=== PATIENT | male | born 1935 | race Caucasian/White ===

== ENCOUNTER 2018-11-28 00:14 | Inpatient (IN) | payer MEDICARE, BC ==
[2018-11-28] MEDS ORDERED: Acetaminophen 325 MG Tab PO ONE (00:29)
[2018-11-28] MEDS ORDERED: Sodium Chloride 0.9% 1,000 ML IV ONE (00:32)
[2018-11-28 00:56] LABS: ANION GAP 13.8; CHLORIDE,CL 100 mmol/L (101-111); SODIUM,NA 133 mmol/L (135-145)
[2018-11-28] MEDS ORDERED: Iopamidol 612 MG/ML 75 ML Bottle IVPUSH ONE (01:53)
[2018-11-28] MEDS ORDERED: Piperacillin/Tazobactam 3.375 GM in Sodium Chloride 0.9% 100 ML IV ONE (02:04)
--- NOTE | 2018-11-28 02:09 | EDM.PDOC ---
ED HPI GENERAL MEDICAL PROBLEM - General Chief Complaint: Possible Sepsis Stated Complaint: AMBULANCE, WEAK Time Seen by Provider: 11/28/18 00:20 Source of Information: Reports: Patient, EMS, Family, RN History Limitations: Reports: Altered Mental Status - History of Present Illness INITIAL COMMENTS - FREE TEXT/NARRATIVE: ED via [facility] with weakness, fever, fell last night, hurt shoulder and bumped head ,no reported loss of consciousness. Hx CVA with left side deficit. Patient admits problems with memory. Hx limited. Family unsure of medications. Appetite decreased still taking fluids. Runny nose past 3 days occasional non productive cough. No prior records on patient. Stated just moved to area 2 weeks prior. Left Shoulder Pain Score (Numeric/FACES): 8 - Related Data Allergies Allergy/AdvReac Type Severity Reaction Status Date / Time No Known Allergies Allergy Verified 11/28/18 03:07 Home Meds: Home Meds Clopidogrel [Plavix] 75 mg PO DAILY 11/28/18 [History] Ferrous Sulfate 325 mg PO DAILY 11/28/18 [History] Multivit-Min/FA/Lycopene/Lut [Centrum Silver Ultra Men's] 1 tab PO DAILY [History] Nystatin 1 applic TOP TID 11/28/18 [History] Pantoprazole Sodium [Protonix] 20 mg PO DAILY 11/28/18 [History] Simvastatin 10 mg PO DAILY 11/28/18 [History] Solifenacin Succinate [Vesicare] 10 mg PO DAILY 11/28/18 [History] Past Medical History HEENT History: Reports: Hard of Hearing Cardiovascular History: Reports: High Cholesterol Gastrointestinal History: Reports: Other (See Below) Other Gastrointestinal History: hernia Genitourinary History: Reports: UTI, Recurrent, Other (See Below) Other Genitourinary History: urosepsis Aug 2018 Neurological History: Reports: Other (See Below) Other Neuro History: hx of "multiple strokes" - Past Surgical History GI Surgical History: Reports: Colonoscopy, EGD Social & Family History - Tobacco Use Smoking Status *Q: Former Smoker Used Tobacco, but Quit: Yes Month/Year Tobacco Last Used: 1994 - Caffeine Use Caffeine Use: Reports: Coffee - Recreational Drug Use Recreational Drug Use: No ED ROS GENERAL - Review of Systems Review Of Systems: See Below Constitutional: Reports: Fever, Weakness, Decreased Appetite HEENT: Reports: Rhinitis Respiratory: Reports: Cough (non productive) Cardiovascular: Reports: No Symptoms GI/Abdominal: Reports: Decreased Appetite : Reports: Incontinence Musculoskeletal: Reports: Shoulder Pain (left) Skin: Reports: No Symptoms Neurological: Reports: Pre-Existing Deficit ED EXAM, GENERAL - Physical Exam Exam: See Below Exam Limited By: No Limitations General Appearance: Alert, No Apparent Distress Eye Exam: Bilateral Eye: EOMI Ears: Normal External Exam, Hearing Loss Nose: Normal Inspection. No: Nasal Drainage Throat/Mouth: Normal Inspection Head: Normocephalic (light abrasion/bruise left upper forehead, nontender) Neck: Normal Inspection, Non-Tender, Full Range of Motion Respiratory/Chest: No Respiratory Distress, Lungs Clear Cardiovascular: Normal Peripheral Pulses, Regular Rate, Rhythm GI/Abdominal: Normal Bowel Sounds, Soft, Tender (mild LLQ) Back Exam: Normal Inspection Extremities: No: Normal Range of Motion (contracture left upper extremity), No Pedal Edema (1+) Neurological: Alert, Memory Loss Recent Events Psychiatric: Normal Affect, Normal Mood Skin Exam: Warm, Dry, Intact, Wound/Incision (abrasion left shoulder) Course - Vital Signs Last Recorded V/S: Last Vital Signs Temp 99.5 F 11/28/18 02:34 Pulse 75 11/28/18 02:34 Resp 24 H 11/28/18 02:34 BP 101/50 L 11/28/18 02:34 Pulse Ox 97 11/28/18 02:34 - Orders/Labs/Meds Orders: Active Orders 24 hr Category Date Time Status CULTURE BLOOD [BC] Stat Lab 11/28/18 00:24 Received CULTURE BLOOD [BC] Stat Lab 11/28/18 00:30 Results UA RFX CARLEE AND CULT IF INDIC [URIN] Urgent Lab 11/28/18 00:37 Ordered Clopidogrel [Plavix] Med 11/28/18 09:00 Active 75 mg PO DAILY Ferrous Sulfate Med 11/28/18 09:00 Active 325 mg PO DAILY Pantoprazole [ProTONIX] Med 11/28/18 06:00 Active 40 mg PO ACBREAKFAST Simvastatin [Zocor] Med 11/28/18 09:00 Active 10 mg PO DAILY Sodium Chloride 0.9% [Normal Saline] 1,000 ml Med 11/28/18 00:32 Active IV .BOLUS Solifenacin Succinate [Vesicare] Med 11/28/18 09:00 Pending 10 mg PO DAILY Blood Culture x2 Reflex Set [OM.PC] Stat Oth 11/28/18 00:32 Ordered Medication Orders Acetaminophen (Tylenol) 650 mg PO Q4H PRN PRN Reason: Pain (Mild 1-3)/fever Clopidogrel Bisulfate (Plavix) 75 mg PO DAILY [facility] Docusate Sodium (Colace) 100 mg PO BID PRN PRN Reason: Constipation Ferrous Sulfate (Ferrous Sulfate) 325 mg PO DAILY [facility] Heparin Sodium (Porcine) (Heparin Sodium) 5,000 units SUBCUT Q8HR [facility] Sodium Chloride (Normal Saline) 1,000 mls @ 100 mls/hr IV .BOLUS ONE Stop: 11/28/18 10:31 Last Infusion: 11/28/18 01:53 Dose: 999 mls/hr Admin: 11/28/18 00:54 Dose: 100 mls/hr Piperacillin Sod/Tazobactam (Sod 3.375 gm/ Sodium Chloride) 100 mls @ 200 mls/ hr IV Q6H [facility] Non-Formulary Medication (Solifenacin Succinate [Vesicare]) 10 mg PO DAILY [facility] Ondansetron HCl (Zofran Odt) 4 mg PO Q4H PRN PRN Reason: nausea, able to take PO Pantoprazole Sodium (Protonix) 40 mg PO ACBREAKFAST [facility] Simvastatin (Zocor) 10 mg PO DAILY [facility] Sodium Chloride (Saline Flush) 10 ml FLUSH ASDIRECTED PRN PRN Reason: Keep Vein Open Zolpidem Tartrate (Ambien) 5 mg PO BEDTIME PRN PRN Reason: Sleep Labs: Laboratory Tests 11/28/18 11/28/18 11/28/18 Range/Units 00:24 00:24 00:24 WBC 4.0 L (5.0-10.0) 10^3/uL RBC 4.32 L (4.6-6.2) 10^6/uL Hgb 11.8 L (14.0-18.0) g/dL Hct 36.3 L (40.0-54.0) % MCV 84.0 (80-100) fL MCH 27.3 (27.0-34.0) pg MCHC 32.5 L (33.0-35.0) g/dL Plt Count 134 L (150-450) 10^3/uL Neut % (Auto) 76.3 H (42.2-75.2) % Lymph % (Auto) 12.9 L (20.5-50.1) % Lamar % (Auto) 10.4 H (2-8) % Eos % (Auto) 0.2 L (1.0-3.0) % Baso % (Auto) 0.2 (0.0-1.0) % Sodium 133 L (135-145) mmol/L Potassium 3.8 (3.6-5.0) mmol/L Chloride 100 L (101-111) mmol/L Carbon Dioxide 23.0 (21.0-31.0) mmol/L Anion Gap 13.8 BUN 9 (7-18) mg/dL Creatinine 1.1 (0.6-1.3) mg/dL Est Cr Clr Drug Dosing TNP Estimated GFR (MDRD) > 60 BUN/Creatinine Ratio 8.18 Glucose 133 H (74-105) mg/dL Lactic Acid 1.1 (0.5-2.2) mmol/L Calcium 8.5 (8.4-10.2) mg/dl Total Bilirubin 2.6 H (0.2-1.0) mg/dL AST 31 (10-42) IU/L ALT 21 (10-60) IU/L Alkaline Phosphatase 85 (42-121) IU/L Troponin I (0.00-0.02) ng/ml B-Natriuretic Peptide (0-100) pg/ml Total Protein 6.2 L (6.7-8.2) g/dl Albumin 3.5 (3.2-5.5) g/dl Globulin 2.7 Albumin/Globulin Ratio 1.30 Amylase 60 (28-100) U/L Lipase 25 (22-51) U/L 11/28/18 Range/Units 00:24 WBC (5.0-10.0) 10^3/uL RBC (4.6-6.2) 10^6/uL Hgb (14.0-18.0) g/dL Hct (40.0-54.0) % MCV (80-100) fL MCH (27.0-34.0) pg MCHC (33.0-35.0) g/dL Plt Count (150-450) 10^3/uL Neut % (Auto) (42.2-75.2) % Lymph % (Auto) (20.5-50.1) % Lamar % (Auto) (2-8) % Eos % (Auto) (1.0-3.0) % Baso % (Auto) (0.0-1.0) % Sodium (135-145) mmol/L Potassium (3.6-5.0) mmol/L Chloride (101-111) mmol/L Carbon Dioxide (21.0-31.0) mmol/L Anion Gap BUN (7-18) mg/dL Creatinine (0.6-1.3) mg/dL Est Cr Clr Drug Dosing Estimated GFR (MDRD) BUN/Creatinine Ratio Glucose (74-105) mg/dL Lactic Acid (0.5-2.2) mmol/L Calcium (8.4-10.2) mg/dl Total Bilirubin (0.2-1.0) mg/dL AST (10-42) IU/L ALT (10-60) IU/L Alkaline Phosphatase (42-121) IU/L Troponin I 0.03 H* (0.00-0.02) ng/ml B-Natriuretic Peptide 163 H (0-100) pg/ml Total Protein (6.7-8.2) g/dl Albumin (3.2-5.5) g/dl Globulin Albumin/Globulin Ratio Amylase (28-100) U/L Lipase (22-51) U/L Meds: Medications Generic Name Dose Route Start Last Admin Trade Name Freq PRN Reason Stop Dose Admin Acetaminophen 650 mg 11/28/18 02:34 Tylenol PO Q4H PRN Pain (Mild 1-3)/fever Clopidogrel Bisulfate 75 mg 11/28/18 09:00 Plavix PO DAILY [facility] Docusate Sodium 100 mg 11/28/18 02:34 Colace PO BID PRN Constipation Ferrous Sulfate 325 mg 11/28/18 09:00 Ferrous Sulfate PO DAILY [facility] Heparin Sodium (Porcine) 5,000 units 11/28/18 06:00 Heparin Sodium SUBCUT Q8HR [facility] Sodium Chloride 1,000 mls @ 100 mls/hr 11/28/18 00:32 11/28/18 01:53 Normal Saline IV 11/28/18 10:31 999 mls/hr .BOLUS ONE Infusion Piperacillin Sod/Tazobactam 100 mls @ 200 mls/hr 11/28/18 08:00 Sod 3.375 gm/ Sodium Chloride IV Q6H [facility] Non-Formulary Medication 10 mg 11/28/18 09:00 Solifenacin Succinate [Vesicare] PO DAILY [facility] Ondansetron HCl 4 mg 11/28/18 02:34 Zofran Odt PO Q4H PRN nausea, able to take PO Pantoprazole Sodium 40 mg 11/28/18 06:00 Protonix PO ACBREAKFAST [facility] Simvastatin 10 mg 11/28/18 09:00 Zocor PO DAILY [facility] Sodium Chloride 10 ml 11/28/18 02:34 Saline Flush FLUSH ASDIRECTED PRN Keep Vein Open Zolpidem Tartrate 5 mg 11/28/18 02:34 Ambien PO BEDTIME PRN Sleep Discontinued Medications Generic Name Dose Route Start Last Admin Trade Name Freq PRN Reason Stop Dose Admin Acetaminophen 650 mg 11/28/18 00:29 11/28/18 00:48 Tylenol PO 11/28/18 00:30 650 mg NOW ONE Administration Piperacillin Sod/Tazobactam 100 mls @ 200 mls/hr 11/28/18 02:04 11/28/18 03: 04 Sod 3.375 gm/ Sodium Chloride IV 11/28/18 02:33 200 mls/hr ONETIME ONE Administration Piperacillin Sod/Tazobactam 100 mls @ 200 mls/hr 11/28/18 02:45 Sod 3.375 gm/ Sodium Chloride IV Q6H [facility] Iopamidol 75 ml 11/28/18 01:53 11/28/18 02:00 [id number] (61%) IVPUSH 11/28/18 01:54 75 ml ONETIME ONE Administration - Radiology Interpretation Free Text/Narrative:: [facility] Final Radiology Report Call: [phone] assistance Online chat: [email or web address] Name: GABRIELA CHAIDEZ Age: 82Years M Date: 11/28/2018 SSN: -- : 1935 Study: CT ABDOMEN/PELVIS W Requesting Physician: RICHARD CRUZ Images: [id number] Addl Studies: Provided Clinical History: Contrast: With Contrast Medium: [id number] Contrast Amount: 75 mL Contrast Method: left hand Page 1 of 2 EXAM: CT Abdomen and Pelvis With Contrast EXAM DATE/TIME: 11/28/2018 2:16 AM CLINICAL HISTORY: 82 years old, male; Signs and symptoms; Other: Llq pain, fever TECHNIQUE: Imaging protocol: Axial computed tomography images of the abdomen and pelvis with intravenous contrast. Coronal and sagittal reformatted images were created and reviewed. Radiation optimization: All CT scans at this facility use at least one of these dose optimization techniques: automated exposure control; mA and/or kV adjustment per patient size (includes targeted exams where dose is matched to clinical indication); or iterative reconstruction. Contrast material: [id number]; Contrast volume: 75 ml; Contrast route: LEFT HAND; COMPARISON: No relevant prior studies available. FINDINGS: Lungs: Minimal dependent atelectasis. ABDOMEN: Liver: No suspicious lesions. Gallbladder and bile ducts: No acute or concerning findings. Pancreas: Unremarkable. No ductal dilation. Spleen: No suspicious lesions. Adrenals: Unremarkalbe. No suspicious mass. Kidneys and ureters: Unremarkable. No hydro. No suspicious lesions. GABRIELA CHAIDEZ | Final Radiology Report CONFIDENTIALITY STATEMENT This report is intended only for use by the referring physician, and only in accordance with law. If you received this in error, call [phone]. Page 2 of 2 Stomach and bowel: Large right inguinal hernia containing small bowel loops with no evidence of obstruction or strangulation. Colonic diverticulosis. Appendix: No evidence of appendicitis. PELVIS: Bladder: Unremarkable as visualized. Reproductive: Unremarkable as visualized. Subperitoneal space: Infiltrative soft tissue in the presacral region at S1 and S2 levels with some cortical destruction then bony remodeling. ABDOMEN and PELVIS: Intraperitoneal space: No free air. No significant fluid collection. Bones/joints: No acute fracture. No dislocation. Soft tissues: Unremarkable. Vasculature: Abdominal aorta has a maximal AP diameter of 6.2 cm. Right common iliac artery has a diameter of 3.5 cm. Lymph nodes: Unremarkable. IMPRESSION: 6.2 cm abdominal aortic aneurysm. 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 Presacral soft tissue involving the bone at S1 and S2 levels with loss of cortex and bony remodeling. This is nonspecific. Given the bony remodeling possibly a chronic inflammatory process but neoplasm is on the differential diagnosis. Large right inguinal hernia. Thank you for allowing us to participate in the care of your patient. [facility] [place] [facility] Final Radiology Report Call: [phone] assistance Online chat: [email or web address] Name: GABRIELA CHAIDEZ Age: 82Years M Date: 11/28/2018 SSN: -- : 1935 Study: CT HEAD WO Requesting Physician: RICHARD CRUZ Images: [id number] Addl Studies: Provided Clinical History: Contrast: Without Contrast Medium: Contrast Amount: Contrast Method: Page 1 of 2 EXAM: CT Head Without Contrast EXAM DATE/TIME: 11/28/2018 12:34 AM CLINICAL HISTORY: 82 years old, male; Signs and symptoms; Other: Fell hit head yesterday, no loss consciousness, fever TECHNIQUE: Imaging protocol: Axial computed tomography images of the head/brain without contrast. Coronal and sagittal reformatted images were created and reviewed. Radiation optimization: All CT scans at this facility use at least one of these dose optimization techniques: automated exposure control; mA and/or kV adjustment per patient size (includes targeted exams where dose is matched to clinical indication); or iterative reconstruction. COMPARISON: No relevant prior studies available. FINDINGS: Brain: Extensive chronic periventricular deep white matter small vessel ischemic change. Right occipital lobe has some encephalomalacia. Multiple old lacunar infarcts. No obvious acute infarct or hemorrhage. Ventricles: No ventriculomegaly. Bones/joints: Unremarkable. Sinuses: No sinus fluid. Mastoid air cells: Left mastoid effusion. Soft tissues: Unremarkable. IMPRESSION: GABRIELA CHAIDEZ | Final Radiology Report CONFIDENTIALITY STATEMENT This report is intended only for use by the referring physician, and only in accordance with law. If you received this in error, call [phone]. Page 2 of 2 No acute intracranial findings. Thank you for allowing us to participate in the care of your patient. Dictated and Authenticated by: Rachid Nelson MD 11/28/2018 1:25 AM Central Time ([place] & [place]) Final Radiology Report Call: [phone] assistance Online chat: [email or web address] Name: GABRIELA CHAIDEZ Age: 82Years M Date: 11/28/2018 MRN: [id number] SSN: -- : 1935 Study: XR CHEST 1 VIEW FRONTAL Requesting Physician: RICHARD CRUZ Images: 1 Addl Studies: Provided Clinical History: Contrast: Contrast Medium: Contrast Amount: Contrast Method: CONFIDENTIALITY STATEMENT This report is intended only for use by the referring physician, and only in accordance with law. If you received this in error, call [phone]. Page 1 of 1 EXAM: XR Chest, 1 View EXAM DATE/TIME: 11/28/2018 12:38 AM CLINICAL HISTORY: 82 years old, male; Signs and symptoms; Fever and other: Fall yesterday, weakness TECHNIQUE: Imaging protocol: XR of the chest, 1 view. COMPARISON: No relevant prior studies available. FINDINGS: Lungs: Unremarkable. No consolidation. Pleural space: Unremarkable. No pleural effusion. No pneumothorax. Heart/Mediastinum: Unremarkable. No cardiomegaly. Bones/joints: Unremarkable. IMPRESSION: No acute findings. Thank you for allowing us to participate in the care of your patient. Dictated and Authenticated by: Luis Enrique Savage MD 11/28/2018 1:24 AM Central Time ( & [place]) - Re-Assessments/Exams Free Text/Narrative Re-Assessment/Exam: 11/28/18 02:07 Fever improved, more alert talkative. Most recent H&P obtained from [facility] [address] [facility] with most recent admission there for urosepsis. Departure - Departure Time of Disposition: 02:20 Disposition: Refer to Observation Condition: Good Clinical Impression: History of CVA with residual deficit, Weakness Fever Qualifiers: Fever type: unspecified Qualified Code(s): R50.9 - Fever, unspecified - Discharge Information *PRESCRIPTION DRUG MONITORING PROGRAM REVIEWED*: No *COPY OF PRESCRIPTION DRUG MONITORING REPORT IN PATIENT MORELIA: No - My Orders Last 24 Hours: My Active Orders 11/28/18 00:24 CULTURE BLOOD [BC] Stat 11/28/18 00:30 CULTURE BLOOD [BC] Stat 11/28/18 00:32 Sodium Chloride 0.9% [Normal Saline] 1,000 ml IV .BOLUS Blood Culture x2 Reflex Set [OM.PC] Stat 11/28/18 00:37 UA RFX CARLEE AND CULT IF INDIC [URIN] Urgent - Assessment/Plan Last 24 Hours: My Active Orders 11/28/18 00:24 CULTURE BLOOD [BC] Stat 11/28/18 00:30 CULTURE BLOOD [BC] Stat 11/28/18 00:32 Sodium Chloride 0.9% [Normal Saline] 1,000 ml IV .BOLUS Blood Culture x2 Reflex Set [OM.PC] Stat 11/28/18 00:37 UA RFX CARLEE AND CULT IF INDIC [URIN] Urgent
[2018-11-28] MEDS ORDERED: Ondansetron 4 MG Tab.DIS PO PRN (02:34)
[2018-11-28] MEDS ORDERED: Zolpidem 5 MG Tab PO PRN (02:34)
[2018-11-28] MEDS ORDERED: Docusate Sodium 100 MG Cap PO PRN (02:34)
--- NOTE | 2018-11-28 02:44 | PCM.HP ---
H&P History of Present Illness - General Date of Service: 11/28/18 Admit Problem/Dx: Admission Diagnosis/Problem Admission Diagnosis/Problem Fever Source of Information: Patient, Provider (er) History Limitations: Reports: Other (Limited knowledge of medical condition) - History of Present Illness Initial Comments - Free Text/Narative: 82-year-old with a history of stroke with left upper extremity deficit. History of right inguinal hernia The patient has been weak. Fell a few days ago. Has been complaining of moderate left shoulder pain. Brought into the emergency room with generalized lower extremity weakness, fever up to 104.6 Stuffy nose in the history, occasional cough. Denies chest pain. Denies urinary burning. Left Shoulder Pain Score (Numeric/FACES): 8 - Related Data Allergies/Adverse Reactions: Allergies Allergy/AdvReac Type Severity Reaction Status Date / Time No Known Allergies Allergy Verified 11/28/18 02:04 Home Medications: Home Meds Clopidogrel [Plavix] 75 mg PO DAILY 11/28/18 [History] Ferrous Sulfate 325 mg PO DAILY 11/28/18 [History] Multivit-Min/FA/Lycopene/Lut [Centrum Silver Ultra Men's] 1 tab PO DAILY [History] Nystatin 1 applic TOP TID 11/28/18 [History] Pantoprazole Sodium [Protonix] 20 mg PO DAILY 11/28/18 [History] Simvastatin 10 mg PO DAILY 11/28/18 [History] Solifenacin Succinate [Vesicare] 10 mg PO DAILY 11/28/18 [History] Past Medical History HEENT History: Reports: Hard of Hearing Cardiovascular History: Reports: High Cholesterol Gastrointestinal History: Reports: Other (See Below) Other Gastrointestinal History: hernia Genitourinary History: Reports: UTI, Recurrent, Other (See Below) Other Genitourinary History: urosepsis Aug 2018 Neurological History: Reports: Other (See Below) Other Neuro History: hx of "multiple strokes" - Past Surgical History GI Surgical History: Reports: Colonoscopy, EGD Social & Family History - Tobacco Use Smoking Status *Q: Former Smoker Used Tobacco, but Quit: Yes Month/Year Tobacco Last Used: 1994 - Caffeine Use Caffeine Use: Reports: Coffee - Recreational Drug Use Recreational Drug Use: No H&P Review of Systems - Review of Systems: Review Of Systems: See Below General: Reports: Fever, Weakness Pulmonary: Denies: Shortness of Breath, Wheezing Cardiovascular: Denies: Chest Pain, Edema Gastrointestinal: Reports: Other (Chronic inguinal hernia). Denies: Abdominal Pain Genitourinary: Denies: Dysuria Psychiatric: Reports: Confusion Exam - Exam Exam: See Below - Vital Signs Vital Signs: Last Vital Signs Temp 38.1 C 11/28/18 01:27 Pulse 81 11/28/18 01:27 Resp 16 11/28/18 01:27 BP 103/47 L 11/28/18 01:27 Pulse Ox 97 11/28/18 01:27 Weight: 83.733 kg - Exam General: Alert, Oriented (Place and person but limited insight into medical condition) Neck: Supple Lungs: Normal Respiratory Effort, Decreased Breath Sounds Cardiovascular: Regular Rate, Regular Rhythm GI/Abdominal Exam: Normal Bowel Sounds, Soft, Non-Tender, Other (Right inguinal hernia) (Male) Exam: Hernia Extremities: No Pedal Edema Skin: Warm, Dry Neurological: Focal Deficit (Left upper extremity hand contracture, 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) Neuro Extensive - Mental Status: Alert, Oriented x3 - Patient Data Lab Results Last 24 hrs: Laboratory Results - last 24 hr 11/28/18 11/28/18 11/28/18 Range/Units 00:24 00:24 00:24 WBC 4.0 L (5.0-10.0) 10^3/uL RBC 4.32 L (4.6-6.2) 10^6/uL Hgb 11.8 L (14.0-18.0) g/dL Hct 36.3 L (40.0-54.0) % MCV 84.0 (80-100) fL MCH 27.3 (27.0-34.0) pg MCHC 32.5 L (33.0-35.0) g/dL Plt Count 134 L (150-450) 10^3/uL Neut % (Auto) 76.3 H (42.2-75.2) % Lymph % (Auto) 12.9 L (20.5-50.1) % [place] % (Auto) 10.4 H (2-8) % Eos % (Auto) 0.2 L (1.0-3.0) % Baso % (Auto) 0.2 (0.0-1.0) % Sodium 133 L (135-145) mmol/L Potassium 3.8 (3.6-5.0) mmol/L Chloride 100 L (101-111) mmol/L Carbon Dioxide 23.0 (21.0-31.0) mmol/L Anion Gap 13.8 BUN 9 (7-18) mg/dL Creatinine 1.1 (0.6-1.3) mg/dL Est Cr Clr Drug Dosing TNP Estimated GFR (MDRD) > 60 BUN/Creatinine Ratio 8.18 Glucose 133 H (74-105) mg/dL Lactic Acid 1.1 (0.5-2.2) mmol/L Calcium 8.5 (8.4-10.2) mg/dl Total Bilirubin 2.6 H (0.2-1.0) mg/dL AST 31 (10-42) IU/L ALT 21 (10-60) IU/L Alkaline Phosphatase 85 (42-121) IU/L Troponin I (0.00-0.02) ng/ml B-Natriuretic Peptide (0-100) pg/ml Total Protein 6.2 L (6.7-8.2) g/dl Albumin 3.5 (3.2-5.5) g/dl Globulin 2.7 Albumin/Globulin Ratio 1.30 Amylase 60 (28-100) U/L Lipase 25 (22-51) U/L 11/28/18 Range/Units 00:24 WBC (5.0-10.0) 10^3/uL RBC (4.6-6.2) 10^6/uL Hgb (14.0-18.0) g/dL Hct (40.0-54.0) % MCV (80-100) fL MCH (27.0-34.0) pg MCHC (33.0-35.0) g/dL Plt Count (150-450) 10^3/uL Neut % (Auto) (42.2-75.2) % Lymph % (Auto) (20.5-50.1) % [place] % (Auto) (2-8) % Eos % (Auto) (1.0-3.0) % Baso % (Auto) (0.0-1.0) % Sodium (135-145) mmol/L Potassium (3.6-5.0) mmol/L Chloride (101-111) mmol/L Carbon Dioxide (21.0-31.0) mmol/L Anion Gap BUN (7-18) mg/dL Creatinine (0.6-1.3) mg/dL Est Cr Clr Drug Dosing Estimated GFR (MDRD) BUN/Creatinine Ratio Glucose (74-105) mg/dL Lactic Acid (0.5-2.2) mmol/L Calcium (8.4-10.2) mg/dl Total Bilirubin (0.2-1.0) mg/dL AST (10-42) IU/L ALT (10-60) IU/L Alkaline Phosphatase (42-121) IU/L Troponin I 0.03 H* (0.00-0.02) ng/ml B-Natriuretic Peptide 163 H (0-100) pg/ml Total Protein (6.7-8.2) g/dl Albumin (3.2-5.5) g/dl Globulin Albumin/Globulin Ratio Amylase (28-100) U/L Lipase (22-51) U/L Result Diagrams: 11/28/18 00:24 11/28/18 00:24 Jose Results Last 24 hrs: Microbiology 11/28/18 00:30 Anaerobic Blood Culture - Final Blood - Venous - Lab Draw Problem List Initiated/Reviewed/Updated: Yes Orders Last 24hrs: Active Orders 24 hr Category Date Time Status Patient Status [ADT] Routine ADT 11/28/18 02:34 Ordered Antiembolic Devices [RC] PER UNIT ROUTINE Care 11/28/18 02:36 Ordered EKG Documentation Completion [RC] URGENT Care 11/28/18 00:32 Active Oxygen Therapy [RC] PRN Care 11/28/18 02:34 Ordered Peripheral IV Care [RC] . DIRECTED Care 11/28/18 02:36 Ordered Up With Assistance [RC] ASDIRECTED Care 11/28/18 02:34 Ordered VTE/DVT Education [RC] PER UNIT ROUTINE Care 11/28/18 02:34 Ordered Vital Signs [RC] Q4H Care 11/28/18 02:34 Ordered Regular Diet [DIET] Diet 11/28/18 Breakfast Ordered BASIC METABOLIC PANEL,BMP [CHEM] AM Lab 11/28/18 05:11 Ordered CBC WITH AUTO DIFF [HEME] AM Lab 11/28/18 05:11 Ordered CULTURE BLOOD [BC] Stat Lab 11/28/18 00:24 Received CULTURE BLOOD [BC] Stat Lab 11/28/18 00:30 Results UA RFX JOSE AND CULT IF INDIC [URIN] Urgent Lab 11/28/18 00:37 Ordered Acetaminophen [Tylenol] Med 11/28/18 02:34 Ordered 650 mg PO Q4H PRN Clopidogrel [Plavix] Med 11/28/18 09:00 Ordered 75 mg PO DAILY Docusate Sodium [Colace] Med 11/28/18 02:34 Ordered 100 mg PO BID PRN Ferrous Sulfate Med 11/28/18 09:00 Ordered 325 mg PO DAILY Heparin Sodium Med 11/28/18 06:00 Ordered 5,000 units SUBCUT Q8HR Ondansetron [Zofran ODT] Med 11/28/18 02:34 Ordered 4 mg PO Q4H PRN Pantoprazole [ProTONIX] Med 11/28/18 06:00 Ordered 40 mg PO ACBREAKFAST Piperacillin/Tazobactam [Zosyn] 3.375 gm Med 11/28/18 02:45 Ordered Sodium Chloride 0.9% [Normal Saline] 100 ml IV Q6H Simvastatin [Zocor] Med 11/28/18 09:00 Ordered 10 mg PO DAILY Sodium Chloride 0.9% [Normal Saline] 1,000 ml Med 11/28/18 00:32 Active IV .BOLUS Sodium Chloride 0.9% [Saline Flush] Med 11/28/18 02:34 Ordered 10 ml FLUSH ASDIRECTED PRN Solifenacin Succinate [Vesicare] Med 11/28/18 09:00 Ordered 10 mg PO DAILY Zolpidem [Ambien] Med 11/28/18 02:34 Ordered 5 mg PO BEDTIME PRN Antiembolic Hose [OM.PC] Per Unit Routine Oth 11/28/18 02:35 Ordered Blood Culture x2 Reflex Set [OM.PC] Stat Oth 11/28/18 00:32 Ordered Peripheral IV Insertion Adult [OM.PC] Routine Oth 11/28/18 02:34 Ordered Saline Lock Insert [OM.PC] Routine Oth 11/28/18 02:34 Ordered Resuscitation Status Routine Resus Stat 11/28/18 02:34 Ordered Medication Orders Acetaminophen (Tylenol) 650 mg PO Q4H PRN PRN Reason: Pain (Mild 1-3)/fever Clopidogrel Bisulfate (Plavix) 75 mg PO DAILY [facility] Docusate Sodium (Colace) 100 mg PO BID PRN PRN Reason: Constipation Ferrous Sulfate (Ferrous Sulfate) 325 mg PO DAILY [facility] Heparin Sodium (Porcine) (Heparin Sodium) 5,000 units SUBCUT Q8HR [facility] Sodium Chloride (Normal Saline) 1,000 mls @ 100 mls/hr IV .BOLUS ONE Stop: 11/28/18 10:31 Last Infusion: 11/28/18 01:53 Dose: 999 mls/hr Admin: 11/28/18 00:54 Dose: 100 mls/hr Piperacillin Sod/Tazobactam (Sod 3.375 gm/ Sodium Chloride) 100 mls @ 200 mls/ hr IV Q6H [facility] Non-Formulary Medication (Solifenacin Succinate [Vesicare]) 10 mg PO DAILY [facility] Ondansetron HCl (Zofran Odt) 4 mg PO Q4H PRN PRN Reason: nausea, able to take PO Pantoprazole Sodium (Protonix) 40 mg PO ACBREAKFAST [facility] Simvastatin (Zocor) 10 mg PO DAILY [facility] Sodium Chloride (Saline Flush) 10 ml FLUSH ASDIRECTED PRN PRN Reason: Keep Vein Open Zolpidem Tartrate (Ambien) 5 mg PO BEDTIME PRN PRN Reason: Sleep Assessment/Plan Comment:: 82-year-old with a history of stroke presented with lower extremity weakness, fever Fever No significant leukocytosis Obtain blood culture Obtain urinalysis and culture Obtain CT abdomen Start empirical treatment with Zosyn History of stroke continue treatment with Plavix We'll get physical and occupational therapy Dyslipidemia Treat with statin DVT prophylaxis with subcutaneous heparin
[2018-11-28] MEDS ORDERED: Piperacillin/Tazobactam 3.375 GM in Sodium Chloride 0.9% 100 ML IV SCH (02:45)
[2018-11-28] MEDS: Pantoprazole 40 MG Tab.CR PO SCH (06:02)
[2018-11-28] MEDS: Heparin Sodium 5,000 Units/ML Vial SUBCUT SCH ×3 (06:02→21:41)
[2018-11-28 07:06] LABS: ANION GAP 14.1; CHLORIDE,CL 103 mmol/L (101-111); SODIUM,NA 137 mmol/L (135-145)
[2018-11-28] MEDS: Piperacillin/Tazobactam 3.375 GM in Sodium Chloride 0.9% 100 ML IV SCH ×3 (08:01→20:48)
[2018-11-28] MEDS: Sodium Chloride 0.9% 10 ML Syringe FLUSH PRN ×3 (08:01→21:34)
[2018-11-28] MEDS: Simvastatin 10 MG Tab PO SCH (08:05)
[2018-11-28] MEDS: Ferrous Sulfate 325 MG Tab PO SCH (08:05)
[2018-11-28] MEDS: Clopidogrel 75 MG Tab PO SCH (08:05)
[2018-11-28] MEDS ORDERED: Non-Formulary Medication 1 Each (Solifenacin Succinate [Vesicare] 10 MG) PO SCH (09:00)
--- NOTE | 2018-11-28 12:17 | PCM.PN ---
- General Info Date of Service: 11/28/18 Subjective Update: feeling better no complaints - Review of Systems General: Reports: Fever (decreased) Pulmonary: Denies: Shortness of Breath Cardiovascular: Denies: Chest Pain, Edema Genitourinary: Denies: Dysuria Neurological: Denies: Confusion - Patient Data Vitals - Most Recent: Last Vital Signs Temp 37.4 C 11/28/18 08:00 Pulse 72 11/28/18 08:00 Resp 20 11/28/18 08:00 BP 137/76 11/28/18 08:00 Pulse Ox 99 11/28/18 08:00 Weight - Most Recent: 83.733 kg I&O - Last 24 Hours: Intake & Output 11/27/18 11/28/18 11/28/18 22:59 06:59 14:59 Intake Total 225 Balance 225 Lab Results Last 24 Hours: Laboratory Results - last 24 hr 11/28/18 11/28/18 11/28/18 Range/Units 00:24 00:24 00:24 WBC 4.0 L (5.0-10.0) 10^3/uL RBC 4.32 L (4.6-6.2) 10^6/uL Hgb 11.8 L (14.0-18.0) g/dL Hct 36.3 L (40.0-54.0) % MCV 84.0 (80-100) fL MCH 27.3 (27.0-34.0) pg MCHC 32.5 L (33.0-35.0) g/dL Plt Count 134 L (150-450) 10^3/uL Neut % (Auto) 76.3 H (42.2-75.2) % Lymph % (Auto) 12.9 L (20.5-50.1) % [place] % (Auto) 10.4 H (2-8) % Eos % (Auto) 0.2 L (1.0-3.0) % Baso % (Auto) 0.2 (0.0-1.0) % Sodium 133 L (135-145) mmol/L Potassium 3.8 (3.6-5.0) mmol/L Chloride 100 L (101-111) mmol/L Carbon Dioxide 23.0 (21.0-31.0) mmol/L Anion Gap 13.8 BUN 9 (7-18) mg/dL Creatinine 1.1 (0.6-1.3) mg/dL Est Cr Clr Drug Dosing TNP Estimated GFR (MDRD) > 60 BUN/Creatinine Ratio 8.18 Glucose 133 H (74-105) mg/dL Lactic Acid 1.1 (0.5-2.2) mmol/L Calcium 8.5 (8.4-10.2) mg/dl Total Bilirubin 2.6 H (0.2-1.0) mg/dL AST 31 (10-42) IU/L ALT 21 (10-60) IU/L Alkaline Phosphatase 85 (42-121) IU/L Troponin I (0.00-0.02) ng/ml B-Natriuretic Peptide (0-100) pg/ml Total Protein 6.2 L (6.7-8.2) g/dl Albumin 3.5 (3.2-5.5) g/dl Globulin 2.7 Albumin/Globulin Ratio 1.30 Amylase 60 (28-100) U/L Lipase 25 (22-51) U/L Urine Color (YELLOW) Urine Appearance (CLEAR) Urine pH (5.0-9.0) Ur Specific [place] (1.005-1.030) Urine Protein (NEGATIVE) Urine Glucose (UA) (NEGATIVE) Urine Ketones (NEGATIVE) Urine Occult Blood (NEGATIVE) Urine Nitrite (NEGATIVE) Urine Bilirubin (NEGATIVE) Urine Urobilinogen (0.2-1.0) mg/dL Ur Leukocyte Esterase (NEGATIVE) Urine RBC /HPF Urine WBC (0-5/HPF) /HPF Ur Epithelial Cells /HPF Urine Bacteria (0-FEW/HPF) /HPF 11/28/18 11/28/18 11/28/18 Range/Units 00:24 06:12 06:12 WBC 3.4 L (5.0-10.0) 10^3/uL RBC 4.31 L (4.6-6.2) 10^6/uL Hgb 11.8 L (14.0-18.0) g/dL Hct 36.6 L (40.0-54.0) % MCV 84.9 (80-100) fL MCH 27.4 (27.0-34.0) pg MCHC 32.2 L (33.0-35.0) g/dL Plt Count 130 L (150-450) 10^3/uL Neut % (Auto) 71.1 (42.2-75.2) % Lymph % (Auto) 17.7 L (20.5-50.1) % [place] % (Auto) 10.6 H (2-8) % Eos % (Auto) 0.3 L (1.0-3.0) % Baso % (Auto) 0.3 (0.0-1.0) % Sodium 137 (135-145) mmol/L Potassium 4.1 (3.6-5.0) mmol/L Chloride 103 (101-111) mmol/L Carbon Dioxide 24.0 (21.0-31.0) mmol/L Anion Gap 14.1 BUN 9 (7-18) mg/dL Creatinine 1.1 (0.6-1.3) mg/dL Est Cr Clr Drug Dosing 53.56 Estimated GFR (MDRD) > 60 BUN/Creatinine Ratio Glucose 119 H (74-105) mg/dL Lactic Acid (0.5-2.2) mmol/L Calcium 8.5 (8.4-10.2) mg/dl Total Bilirubin (0.2-1.0) mg/dL AST (10-42) IU/L ALT (10-60) IU/L Alkaline Phosphatase (42-121) IU/L Troponin I 0.03 H* (0.00-0.02) ng/ml B-Natriuretic Peptide 163 H (0-100) pg/ml Total Protein (6.7-8.2) g/dl Albumin (3.2-5.5) g/dl Globulin Albumin/Globulin Ratio Amylase (28-100) U/L Lipase (22-51) U/L Urine Color (YELLOW) Urine Appearance (CLEAR) Urine pH (5.0-9.0) Ur Specific [place] (1.005-1.030) Urine Protein (NEGATIVE) Urine Glucose (UA) (NEGATIVE) Urine Ketones (NEGATIVE) Urine Occult Blood (NEGATIVE) Urine Nitrite (NEGATIVE) Urine Bilirubin (NEGATIVE) Urine Urobilinogen (0.2-1.0) mg/dL Ur Leukocyte Esterase (NEGATIVE) Urine RBC /HPF Urine WBC (0-5/HPF) /HPF Ur Epithelial Cells /HPF Urine Bacteria (0-FEW/HPF) /HPF 11/28/18 Range/Units 06:35 WBC (5.0-10.0) 10^3/uL RBC (4.6-6.2) 10^6/uL Hgb (14.0-18.0) g/dL Hct (40.0-54.0) % MCV (80-100) fL MCH (27.0-34.0) pg MCHC (33.0-35.0) g/dL Plt Count (150-450) 10^3/uL Neut % (Auto) (42.2-75.2) % Lymph % (Auto) (20.5-50.1) % [place] % (Auto) (2-8) % Eos % (Auto) (1.0-3.0) % Baso % (Auto) (0.0-1.0) % Sodium (135-145) mmol/L Potassium (3.6-5.0) mmol/L Chloride (101-111) mmol/L Carbon Dioxide (21.0-31.0) mmol/L Anion Gap BUN (7-18) mg/dL Creatinine (0.6-1.3) mg/dL Est Cr Clr Drug Dosing Estimated GFR (MDRD) BUN/Creatinine Ratio Glucose (74-105) mg/dL Lactic Acid (0.5-2.2) mmol/L Calcium (8.4-10.2) mg/dl Total Bilirubin (0.2-1.0) mg/dL AST (10-42) IU/L ALT (10-60) IU/L Alkaline Phosphatase (42-121) IU/L Troponin I (0.00-0.02) ng/ml B-Natriuretic Peptide (0-100) pg/ml Total Protein (6.7-8.2) g/dl Albumin (3.2-5.5) g/dl Globulin Albumin/Globulin Ratio Amylase (28-100) U/L Lipase (22-51) U/L Urine Color Yellow (YELLOW) Urine Appearance Clear (CLEAR) Urine pH 7.0 (5.0-9.0) Ur Specific [place] 1.010 (1.005-1.030) Urine Protein Negative (NEGATIVE) Urine Glucose (UA) Negative (NEGATIVE) Urine Ketones Negative (NEGATIVE) Urine Occult Blood Small H (NEGATIVE) Urine Nitrite Negative (NEGATIVE) Urine Bilirubin Negative (NEGATIVE) Urine Urobilinogen 0.2 (0.2-1.0) mg/dL Ur Leukocyte Esterase Small H (NEGATIVE) Urine RBC 5-10 H /HPF Urine WBC 5-10 H (0-5/HPF) /HPF Ur Epithelial Cells Rare /HPF Urine Bacteria Few (0-FEW/HPF) /HPF Jose Results Last 24 Hours: Microbiology 11/28/18 00:30 Anaerobic Blood Culture - Final Blood - Venous - Lab Draw Med Orders - Current: Current Medications Acetaminophen (Tylenol) 650 mg PO Q4H PRN PRN Reason: Pain (Mild 1-3)/fever Clopidogrel Bisulfate (Plavix) 75 mg PO DAILY [facility] Last Admin: 11/28/18 08:05 Dose: 75 mg Docusate Sodium (Colace) 100 mg PO BID PRN PRN Reason: Constipation Ferrous Sulfate (Ferrous Sulfate) 325 mg PO DAILY [facility] Last Admin: 11/28/18 08:05 Dose: 325 mg Heparin Sodium (Porcine) (Heparin Sodium) 5,000 units SUBCUT Q8HR [facility] Last Admin: 11/28/18 06:02 Dose: 5,000 units Piperacillin Sod/Tazobactam (Sod 3.375 gm/ Sodium Chloride) 100 mls @ 200 mls/ hr IV Q6H [facility] Last Infusion: 11/28/18 08:36 Dose: Infused Ondansetron HCl (Zofran Odt) 4 mg PO Q4H PRN PRN Reason: nausea, able to take PO Pantoprazole Sodium (Protonix) 40 mg PO ACBREAKFAST [facility] Last Admin: 11/28/18 06:02 Dose: 40 mg Simvastatin (Zocor) 10 mg PO DAILY [facility] Last Admin: 11/28/18 08:05 Dose: 10 mg Sodium Chloride (Saline Flush) 10 ml FLUSH ASDIRECTED PRN PRN Reason: Keep Vein Open Last Admin: 11/28/18 08:01 Dose: 10 ml Zolpidem Tartrate (Ambien) 5 mg PO BEDTIME PRN PRN Reason: Sleep Discontinued Medications Acetaminophen (Tylenol) 650 mg PO NOW ONE Stop: 11/28/18 00:30 Last Admin: 11/28/18 00:48 Dose: 650 mg Sodium Chloride (Normal Saline) 1,000 mls @ 100 mls/hr IV .BOLUS ONE Stop: 11/28/18 10:31 Last Infusion: 11/28/18 01:53 Dose: 999 mls/hr Piperacillin Sod/Tazobactam (Sod 3.375 gm/ Sodium Chloride) 100 mls @ 200 mls/ hr IV ONETIME ONE Stop: 11/28/18 02:33 Last Admin: 11/28/18 03:04 Dose: 200 mls/hr Piperacillin Sod/Tazobactam (Sod 3.375 gm/ Sodium Chloride) 100 mls @ 200 mls/ hr IV Q6H [facility] Iopamidol (Isovue-300 (61%)) 75 ml IVPUSH ONETIME ONE Stop: 11/28/18 01:54 Last Admin: 11/28/18 02:00 Dose: 75 ml Non-Formulary Medication (Solifenacin Succinate [Vesicare]) 10 mg PO DAILY [facility] Last Admin: 11/28/18 10:24 Dose: Not Given - Exam Quality Assessment: Supplemental Oxygen General: Alert, Oriented Lungs: Normal Respiratory Effort, Decreased Breath Sounds Cardiovascular: Regular Rate, Regular Rhythm GI/Abdominal Exam: Normal Bowel Sounds, Soft, Non-Tender Extremities: No Pedal Edema - Problem List & Annotations (1) Fever SNOMED Code(s): 996258144 Code(s): R50.9 - FEVER, UNSPECIFIED Status: Acute Current Visit: Yes Qualifiers: Fever type: unspecified Qualified Code(s): R50.9 - Fever, unspecified (2) Weakness SNOMED Code(s): 30373728 Code(s): R53.1 - WEAKNESS Status: Acute Current Visit: Yes - Problem List Review Problem List Initiated/Reviewed/Updated: Yes - My Orders Last 24 Hours: My Active Orders 11/28/18 02:34 Patient Status [ADT] Routine Oxygen Therapy [RC] PRN Up With Assistance [RC] ASDIRECTED VTE/DVT Education [RC] PER UNIT ROUTINE Vital Signs [RC] 04,08,12,16,20 Acetaminophen [Tylenol] 650 mg PO Q4H PRN Docusate Sodium [Colace] 100 mg PO BID PRN Ondansetron [Zofran ODT] 4 mg PO Q4H PRN Sodium Chloride 0.9% [Saline Flush] 10 ml FLUSH ASDIRECTED PRN Zolpidem [Ambien] 5 mg PO BEDTIME PRN Peripheral IV Insertion Adult [OM.PC] Routine Saline Lock Insert [OM.PC] Routine Resuscitation Status Routine 11/28/18 02:35 Antiembolic Hose [OM.PC] Per Unit Routine 11/28/18 02:36 Antiembolic Devices [RC] PER UNIT ROUTINE Peripheral IV Care [RC] 11/28/18 02:46 OT Evaluation and Treatment [CONS] Routine PT Evaluation and Treatment [CONS] Routine 11/28/18 06:00 Heparin Sodium 5,000 units SUBCUT Q8HR Pantoprazole [ProTONIX] 40 mg PO ACBREAKFAST 11/28/18 08:00 Piperacillin/Tazobactam [Zosyn] 3.375 gm Sodium Chloride 0.9% [Normal Saline] 100 ml IV Q6H 11/28/18 09:00 Clopidogrel [Plavix] 75 mg PO DAILY Ferrous Sulfate 325 mg PO DAILY Simvastatin [Zocor] 10 mg PO DAILY 11/28/18 Breakfast Regular Diet [DIET] 11/29/18 05:15 BASIC METABOLIC PANEL,BMP [CHEM] AM CBC WITH AUTO DIFF [HEME] AM - Plan Plan:: 82-year-old with a history of stroke presented with lower extremity weakness, fever Fever No significant leukocytosis blood culture: pending urinalysis abnormal and urine culture pending CT abdomen: 6.2 cm abdominal aneurysm, 3.5 cm r. common iliac aneurysm - will need vasc surgery f/up presacral soft tissue abnormality - chronic inflammation vs. neoplasm - f/up with repeat imaging Started empirical treatment with Zosyn History of stroke continue treatment with Plavix physical and occupational therapy Dyslipidemia Treat with statin DVT prophylaxis with subcutaneous heparin
[2018-11-28] MEDS: Acetaminophen 325 MG Tab PO PRN ×2 (13:00→20:36)
[2018-11-29] MEDS: Sodium Chloride 0.9% 10 ML Syringe FLUSH PRN ×3 (02:02→18:58)
[2018-11-29] MEDS: Piperacillin/Tazobactam 3.375 GM in Sodium Chloride 0.9% 100 ML IV SCH ×5 (02:03→23:54)
[2018-11-29] MEDS: Heparin Sodium 5,000 Units/ML Vial SUBCUT SCH ×3 (05:51→21:39)
[2018-11-29] MEDS: Pantoprazole 40 MG Tab.CR PO SCH (05:53)
[2018-11-29 07:22] LABS: ANION GAP 13.2; CHLORIDE,CL 102 mmol/L (101-111); SODIUM,NA 136 mmol/L (135-145)
[2018-11-29] MEDS: Acetaminophen 325 MG Tab PO PRN ×2 (08:44→19:36)
[2018-11-29] MEDS: Simvastatin 10 MG Tab PO SCH (08:45)
[2018-11-29] MEDS: Clopidogrel 75 MG Tab PO SCH (08:45)
[2018-11-29] MEDS: Ferrous Sulfate 325 MG Tab PO SCH (08:45)
--- NOTE | 2018-11-29 10:51 | PCM.PN ---
- General Info Date of Service: 11/29/18 Admission Dx/Problem (Free Text): Admission Diagnosis/Problem Admission Diagnosis/Problem Fever Subjective Update: feeling better no complaints still had fever last night no cough, no sob, no cp Functional Status: Reports: Pain Controlled, Tolerating Diet - Review of Systems General: Reports: Fever Pulmonary: Denies: Shortness of Breath Cardiovascular: Denies: Chest Pain, Edema Gastrointestinal: Denies: Abdominal Pain Neurological: Denies: Confusion - Patient Data Vitals - Most Recent: Last Vital Signs Temp 37.5 C 11/29/18 09:59 Pulse 74 11/29/18 08:24 Resp 20 11/29/18 08:24 BP 111/57 L 11/29/18 08:24 Pulse Ox 93 L 11/29/18 09:59 Weight - Most Recent: 83.733 kg I&O - Last 24 Hours: Intake & Output 11/28/18 11/29/18 11/29/18 22:59 06:59 14:59 Intake Total 1123 354 Balance 1123 354 Lab Results Last 24 Hours: Laboratory Results - last 24 hr 11/29/18 11/29/18 Range/Units 06:16 06:16 WBC 3.1 L (5.0-10.0) 10^3/uL RBC 4.26 L (4.6-6.2) 10^6/uL Hgb 11.7 L (14.0-18.0) g/dL Hct 36.3 L (40.0-54.0) % MCV 85.2 (80-100) fL MCH 27.5 (27.0-34.0) pg MCHC 32.2 L (33.0-35.0) g/dL Plt Count 121 L (150-450) 10^3/uL Neut % (Auto) 69.6 (42.2-75.2) % Lymph % (Auto) 18.3 L (20.5-50.1) % [place] % (Auto) 10.8 H (2-8) % Eos % (Auto) 1.0 (1.0-3.0) % Baso % (Auto) 0.3 (0.0-1.0) % Sodium 136 (135-145) mmol/L Potassium 4.2 (3.6-5.0) mmol/L Chloride 102 (101-111) mmol/L Carbon Dioxide 25.0 (21.0-31.0) mmol/L Anion Gap 13.2 BUN 11 (7-18) mg/dL Creatinine 1.1 (0.6-1.3) mg/dL Est Cr Clr Drug Dosing 53.56 mL/min Estimated GFR (MDRD) > 60 Glucose 109 H (74-105) mg/dL Calcium 8.2 L (8.4-10.2) mg/dl Jose Results Last 24 Hours: Microbiology 11/28/18 06:35 Urine Culture - Preliminary Urine, Voided NO GROWTH AFTER 1 DAY 11/28/18 00:30 Aerobic Blood Culture - Preliminary Blood - Venous - Lab Draw NO GROWTH AFTER 1 DAY Anaerobic Blood Culture - Final 11/28/18 00:24 Aerobic Blood Culture - Preliminary Blood - Venous NO GROWTH AFTER 1 DAY Anaerobic Blood Culture - Preliminary NO GROWTH AFTER 1 DAY Med Orders - Current: Current Medications Acetaminophen (Tylenol) 650 mg PO Q4H PRN PRN Reason: Pain (Mild 1-3)/fever Last Admin: 11/29/18 08:44 Dose: 650 mg Clopidogrel Bisulfate (Plavix) 75 mg PO DAILY [facility] Last Admin: 11/29/18 08:45 Dose: 75 mg Docusate Sodium (Colace) 100 mg PO BID PRN PRN Reason: Constipation Ferrous Sulfate (Ferrous Sulfate) 325 mg PO DAILY [facility] Last Admin: 11/29/18 08:45 Dose: 325 mg Heparin Sodium (Porcine) (Heparin Sodium) 5,000 units SUBCUT Q8HR [facility] Last Admin: 11/29/18 05:51 Dose: 5,000 units Piperacillin Sod/Tazobactam (Sod 3.375 gm/ Sodium Chloride) 100 mls @ 200 mls/ hr IV Q6HR [facility] Ondansetron HCl (Zofran Odt) 4 mg PO Q4H PRN PRN Reason: nausea, able to take PO Pantoprazole Sodium (Protonix) 40 mg PO ACBREAKFAST [facility] Last Admin: 11/29/18 05:53 Dose: 40 mg Simvastatin (Zocor) 10 mg PO DAILY [facility] Last Admin: 11/29/18 08:45 Dose: 10 mg Sodium Chloride (Saline Flush) 10 ml FLUSH ASDIRECTED PRN PRN Reason: Keep Vein Open Last Admin: 11/29/18 02:41 Dose: 10 ml Zolpidem Tartrate (Ambien) 5 mg PO BEDTIME PRN PRN Reason: Sleep Discontinued Medications Acetaminophen (Tylenol) 650 mg PO NOW ONE Stop: 11/28/18 00:30 Last Admin: 11/28/18 00:48 Dose: 650 mg Sodium Chloride (Normal Saline) 1,000 mls @ 100 mls/hr IV .BOLUS ONE Stop: 11/28/18 10:31 Last Infusion: 11/28/18 01:53 Dose: 999 mls/hr Piperacillin Sod/Tazobactam (Sod 3.375 gm/ Sodium Chloride) 100 mls @ 200 mls/ hr IV ONETIME ONE Stop: 11/28/18 02:33 Last Admin: 11/28/18 03:04 Dose: 200 mls/hr Piperacillin Sod/Tazobactam (Sod 3.375 gm/ Sodium Chloride) 100 mls @ 200 mls/ hr IV Q6H [facility] Piperacillin Sod/Tazobactam (Sod 3.375 gm/ Sodium Chloride) 100 mls @ 200 mls/ hr IV Q6H [facility] Last Admin: 11/29/18 08:46 Dose: 200 mls/hr Iopamidol (Isovue-300 (61%)) 75 ml IVPUSH ONETIME ONE Stop: 11/28/18 01:54 Last Admin: 11/28/18 02:00 Dose: 75 ml Non-Formulary Medication (Solifenacin Succinate [Vesicare]) 10 mg PO DAILY [facility] Last Admin: 11/28/18 10:24 Dose: Not Given - Exam General: Alert, Oriented Neck: Supple Lungs: Clear to Auscultation, Normal Respiratory Effort Cardiovascular: Regular Rate, Regular Rhythm GI/Abdominal Exam: Normal Bowel Sounds, Soft, Non-Tender (Male) Exam: Other (inguinal hernia) Extremities: No Pedal Edema Skin: Warm, Dry Neurological: No New Focal Deficit Psy/Mental Status: Alert, Normal Affect, Normal Mood - Problem List & Annotations (1) Fever SNOMED Code(s): 657138309 Code(s): R50.9 - FEVER, UNSPECIFIED Status: Acute Current Visit: Yes Qualifiers: Fever type: unspecified Qualified Code(s): R50.9 - Fever, unspecified (2) Weakness SNOMED Code(s): 72162675 Code(s): R53.1 - WEAKNESS Status: Acute Current Visit: Yes - Problem List Review Problem List Initiated/Reviewed/Updated: Yes - My Orders Last 24 Hours: My Active Orders 11/29/18 13:00 Piperacillin/Tazobactam [Zosyn] 3.375 gm Sodium Chloride 0.9% [Normal Saline] 100 ml IV Q6HR - Plan Plan:: 82-year-old with a history of stroke presented with lower extremity weakness, fever Fever No significant leukocytosis blood culture: pending - neg for now urinalysis abnormal and urine culture pending CT abdomen: 6.2 cm abdominal aneurysm, 3.5 cm r. common iliac aneurysm - will need vasc surgery f/up presacral soft tissue abnormality - chronic inflammation vs. neoplasm - f/up with repeat imaging treat empirically with Zosyn History of stroke continue treatment with Plavix physical and occupational therapy Dyslipidemia Treat with statin DVT prophylaxis with subcutaneous heparin
[2018-11-30] MEDS: Acetaminophen 325 MG Tab PO PRN (03:59)
[2018-11-30] MEDS: Pantoprazole 40 MG Tab.CR PO SCH (05:36)
[2018-11-30] MEDS: Heparin Sodium 5,000 Units/ML Vial SUBCUT SCH (05:36)
[2018-11-30] MEDS: Piperacillin/Tazobactam 3.375 GM in Sodium Chloride 0.9% 100 ML IV SCH ×2 (05:37→12:25)
[2018-11-30 07:07] LABS: ANION GAP 12.7; CHLORIDE,CL 105 mmol/L (101-111); SODIUM,NA 136 mmol/L (135-145)
[2018-11-30] MEDS: Ferrous Sulfate 325 MG Tab PO SCH (08:57)
[2018-11-30] MEDS: Clopidogrel 75 MG Tab PO SCH (08:57)
[2018-11-30] MEDS: Simvastatin 10 MG Tab PO SCH (08:57)
--- NOTE | 2018-11-30 13:47 | PCM.DCSUM1 ---
Discharge Summary - Hospital Course Free Text/Narrative:: 82-year-old with a history of stroke presented with lower extremity weakness, fever Fever - continued No significant leukocytosis blood culture: pending - neg for now urinalysis abnormal and urine culture negative x 2 days might relate to infection or hematoma treat empirically with Zosyn CT abdomen: 6.2 cm abdominal aneurysm, 3.5 cm r. common iliac aneurysm per original reading: "presacral soft tissue abnormality - chronic inflammation vs. neoplasm" d/w dr Lind radiology and dr. Sinclair Vasc Surg. - likely contained aneurysm rupture will transfer to [facility] by ambulance History of stroke continue treatment with Plavix physical and occupational therapy Dyslipidemia Treat with statin Diagnosis: Stroke: No - Discharge Data Discharge Date: 11/30/18 Discharge Disposition: DC/Tfer to Acute Hospital 02 Condition: Good - Discharge Diagnosis/Problem(s) (1) Fever SNOMED Code(s): 821283519 ICD Code: R50.9 - FEVER, UNSPECIFIED Status: Acute Current Visit: Yes Qualifiers: Fever type: unspecified Qualified Code(s): R50.9 - Fever, unspecified (2) Weakness SNOMED Code(s): 90866157 ICD Code: R53.1 - WEAKNESS Status: Acute Current Visit: Yes (3) Aortic aneurysm and dissection SNOMED Code(s): 834734018 ICD Code: I71.00 - DISSECTION OF UNSPECIFIED SITE OF AORTA Status: Acute Current Visit: Yes - Patient Summary/Data Consults: Consultations 11/28/18 02:46 OT Evaluation and Treatment [CONS] Routine PT Evaluation and Treatment [CONS] Routine - Patient Instructions Diet: Usual Diet as Tolerated Activity: As Tolerated - Discharge Plan *PRESCRIPTION DRUG MONITORING PROGRAM REVIEWED*: No *COPY OF PRESCRIPTION DRUG MONITORING REPORT IN PATIENT MORELIA: No Home Medications: Home Meds Clopidogrel [Plavix] 75 mg PO DAILY 11/28/18 [History] Ferrous Sulfate 325 mg PO DAILY 11/28/18 [History] Multivit-Min/FA/Lycopene/Lut [Centrum Silver Ultra Men's] 1 tab PO DAILY [History] Nystatin 1 applic TOP TID 11/28/18 [History] Pantoprazole Sodium [Protonix] 20 mg PO DAILY 11/28/18 [History] Simvastatin 10 mg PO DAILY 11/28/18 [History] Solifenacin Succinate [Vesicare] 10 mg PO DAILY 11/28/18 [History] Acetaminophen [Tylenol] 650 mg PO Q4H PRN tablet 11/30/18 [Rx] Heparin Sodium 5,000 units SUBCUT Q8HR vial 11/30/18 [Rx] Piperacillin/Tazobactam [Zosyn] 3.375 gm IV Q6HR vial 11/30/18 [Rx] - Discharge Summary/Plan Comment DC Time >30 min.: Yes (d/w family, dr. Lind, Dr. Fuentes, dr. Hennessy, arrange transfer by ambula ) - General Info Date of Service: 11/30/18 Subjective Update: feeling well although occasional crying no complaints still had fever last night 38.5 no cough, no sob, no cp - Review of Systems General: Reports: Fever, Weakness Pulmonary: Denies: Shortness of Breath Cardiovascular: Denies: Chest Pain Gastrointestinal: Denies: Abdominal Pain Genitourinary: Denies: Dysuria Neurological: Denies: Confusion - Patient Data Vitals - Most Recent: Last Vital Signs Temp 37.4 C 11/30/18 12:00 Pulse 85 11/30/18 12:00 Resp 20 11/30/18 12:00 BP 107/53 L 11/30/18 12:00 Pulse Ox 96 11/30/18 12:00 Weight - Most Recent: 83.733 kg I&O - Last 24 hours: Intake & Output 11/29/18 11/30/18 11/30/18 22:59 06:59 14:59 Intake Total 325 Balance 325 Lab Results - Last 24 hrs: Laboratory Results - last 24 hr 11/30/18 11/30/18 11/30/18 Range/Units 06:17 06:17 06:17 WBC 3.0 L (5.0-10.0) 10^3/uL RBC 4.07 L (4.6-6.2) 10^6/uL Hgb 11.0 L (14.0-18.0) g/dL Hct 34.3 L (40.0-54.0) % MCV 84.3 (80-100) fL MCH 27.0 (27.0-34.0) pg MCHC 32.1 L (33.0-35.0) g/dL Plt Count 112 L (150-450) 10^3/uL Neut % (Auto) 71.7 (42.2-75.2) % Lymph % (Auto) 16.7 L (20.5-50.1) % [place] % (Auto) 10.3 H (2-8) % Eos % (Auto) 1.0 (1.0-3.0) % Baso % (Auto) 0.3 (0.0-1.0) % Sodium 136 (135-145) mmol/L Potassium 3.7 (3.6-5.0) mmol/L Chloride 105 (101-111) mmol/L Carbon Dioxide 22.0 (21.0-31.0) mmol/L Anion Gap 12.7 BUN 10 (7-18) mg/dL Creatinine 1.1 (0.6-1.3) mg/dL Est Cr Clr Drug Dosing 53.56 mL/min Estimated GFR (MDRD) > 60 Glucose 112 H (74-105) mg/dL Lactic Acid 0.7 (0.5-2.2) mmol/L Calcium 8.0 L (8.4-10.2) mg/dl CARLEE Results - Last 24 hrs: Microbiology 11/28/18 06:35 Urine Culture - Final Urine, Voided NO GROWTH AFTER 2 DAYS 11/28/18 00:30 Aerobic Blood Culture - Preliminary Blood - Venous - Lab Draw NO GROWTH AFTER 2 DAYS Anaerobic Blood Culture - Final 11/28/18 00:24 Aerobic Blood Culture - Preliminary Blood - Venous NO GROWTH AFTER 2 DAYS Anaerobic Blood Culture - Preliminary NO GROWTH AFTER 2 DAYS Med Orders - Current: Current Medications Acetaminophen (Tylenol) 650 mg PO Q4H PRN PRN Reason: Pain (Mild 1-3)/fever Last Admin: 11/30/18 03:59 Dose: 650 mg Clopidogrel Bisulfate (Plavix) 75 mg PO DAILY [facility] Last Admin: 11/30/18 08:57 Dose: 75 mg Docusate Sodium (Colace) 100 mg PO BID PRN PRN Reason: Constipation Ferrous Sulfate (Ferrous Sulfate) 325 mg PO DAILY [facility] Last Admin: 11/30/18 08:57 Dose: 325 mg Heparin Sodium (Porcine) (Heparin Sodium) 5,000 units SUBCUT Q8HR [facility] Last Admin: 11/30/18 05:36 Dose: 5,000 units Piperacillin Sod/Tazobactam (Sod 3.375 gm/ Sodium Chloride) 100 mls @ 200 mls/ hr IV Q6HR [facility] Last Admin: 11/30/18 12:25 Dose: 200 mls/hr Ondansetron HCl (Zofran Odt) 4 mg PO Q4H PRN PRN Reason: nausea, able to take PO Pantoprazole Sodium (Protonix) 40 mg PO ACBREAKFAST [facility] Last Admin: 11/30/18 05:36 Dose: 40 mg Simvastatin (Zocor) 10 mg PO DAILY [facility] Last Admin: 11/30/18 08:57 Dose: 10 mg Sodium Chloride (Saline Flush) 10 ml FLUSH ASDIRECTED PRN PRN Reason: Keep Vein Open Last Admin: 11/29/18 18:58 Dose: 10 ml Zolpidem Tartrate (Ambien) 5 mg PO BEDTIME PRN PRN Reason: Sleep Discontinued Medications Acetaminophen (Tylenol) 650 mg PO NOW ONE Stop: 11/28/18 00:30 Last Admin: 11/28/18 00:48 Dose: 650 mg Sodium Chloride (Normal Saline) 1,000 mls @ 100 mls/hr IV .BOLUS ONE Stop: 11/28/18 10:31 Last Infusion: 11/28/18 01:53 Dose: 999 mls/hr Piperacillin Sod/Tazobactam (Sod 3.375 gm/ Sodium Chloride) 100 mls @ 200 mls/ hr IV ONETIME ONE Stop: 11/28/18 02:33 Last Admin: 11/28/18 03:04 Dose: 200 mls/hr Piperacillin Sod/Tazobactam (Sod 3.375 gm/ Sodium Chloride) 100 mls @ 200 mls/ hr IV Q6H [facility] Piperacillin Sod/Tazobactam (Sod 3.375 gm/ Sodium Chloride) 100 mls @ 200 mls/ hr IV Q6H [facility] Last Admin: 11/29/18 08:46 Dose: 200 mls/hr Iopamidol (Isovue-300 (61%)) 75 ml IVPUSH ONETIME ONE Stop: 11/28/18 01:54 Last Admin: 11/28/18 02:00 Dose: 75 ml Non-Formulary Medication (Solifenacin Succinate [Vesicare]) 10 mg PO DAILY [facility] Last Admin: 11/28/18 10:24 Dose: Not Given - Exam General: Reports: Alert, Oriented Neck: Reports: Supple Lungs: Reports: Clear to Auscultation, Normal Respiratory Effort Cardiovascular: Reports: Regular Rate, Regular Rhythm GI/Abdominal Exam: Normal Bowel Sounds, Soft, Non-Tender (Male) Exam: Other (r. inguinal) Extremities: No Pedal Edema Skin: Reports: Warm, Dry Neurological: Reports: Other (left UE paresis) Psy/Mental Status: Reports: Alert, Depressed
== END 2018-11-30 14:50 | DRG 56 ==
LOC: DL.ED 00:14 → UNDOADMOB 02:25 → DL.MS 02:25 → OBSVTOIN 11-29 13:19
PROVIDERS: ADMIT Internal Medicine; ATTEND Internal Medicine
DX: I69.934 Monoplegia of upper limb following unspecified cerebrovascular disease affecting left non-dominant side (principal); I71.00 Dissection of unspecified site of aorta; H91.90 Unspecified hearing loss, unspecified ear; E78.00 Pure hypercholesterolemia, unspecified; E78.5 Hyperlipidemia, unspecified; R50.9 Fever, unspecified; Z87.891 Personal history of nicotine dependence; Z79.899 Other long term (current) drug therapy
CPT/HCPCS: 36415; 70450; 71045; 73020-LT; 74177; 80048; 80053; 81001; 82150; 83605; 83690; 83880; 84484; 85025; 87040; 87086; 93005; 97166-GO; 99285-25; A9270-GY; J1644; J2543; J7030; J7050; Q9967

== ENCOUNTER 2022-02-05 09:29 | Emergency (ER) | payer MEDICARE, BC ==
[2022-02-05] MEDS ORDERED: Sodium Chloride 0.9% 10 ML Syringe FLUSH PRN (09:40)
[2022-02-05 10:25] LABS: ANION GAP 9.3 mEq/L (7-13); CHLORIDE,CL 107 mmol/L (98-107); SODIUM,NA 141 mmol/L (136-145)
[2022-02-05 10:28] LABS: ESTIMATED GFR 53 mL/min (>=60)
== END 2022-02-05 12:26 | disposition home or self-care (01) ==
LOC: DL.ED 09:29
DX: G45.9 Transient cerebral ischemic attack, unspecified (principal); E78.00 Pure hypercholesterolemia, unspecified; Z79.899 Other long term (current) drug therapy; Z20.822 Contact with and (suspected) exposure to COVID-19
CPT/HCPCS: 36415; 70450; 80053; 81001; 83605; 83735; 85025; 85610; 86140; 87086; 93005; 99285; U0002

== ENCOUNTER 2022-10-12 18:10 | Emergency (ER) | payer MEDICARE, BC ==
[2022-10-12 19:26] LABS: ANION GAP 10.9 mEq/L (7-13); CHLORIDE,CL 104 mmol/L (98-107); SODIUM,NA 139 mmol/L (136-145)
[2022-10-12 19:27] LABS: ESTIMATED GFR 56 mL/min (>=60)
[2022-10-12] MEDS ORDERED: Iopamidol 755 Mg/ML 100 ML Bottle IVPUSH ONE (22:28)
[2022-10-12] MEDS ORDERED: cefTRIAXone 2 GM Vial IVPUSH ONE (22:57)
== END 2022-10-12 23:45 ==
LOC: DL.ED 18:10
DX: J18.9 Pneumonia, unspecified organism (principal); J40 Bronchitis, not specified as acute or chronic; E78.00 Pure hypercholesterolemia, unspecified; Z79.02 Long term (current) use of antithrombotics/antiplatelets; Z79.899 Other long term (current) drug therapy
CPT/HCPCS: 36415; 71045; 71275; 80053; 83735; 83880; 84484; 85025; 85379; 86140; 93005; 93010; 96374; 99284; 99285; J0696; Q9967

== ENCOUNTER 2023-08-28 16:11 | Inpatient (IN) | payer MEDICARE, BC ==
[2023-08-28 16:13] LABS: BASOPHILS PERCENT AUTO 0.1 % (0.0-1.0); EOSINOPHILS PERCENT AUTO 0.2 % (1.0-3.0); HEMATOCRIT 39.3 % (40.0-54.0); HEMOGLOBIN 12.1 g/dL (14.0-18.0); LYMPHOCYTES PERCENT AUTO 1.5 % (20.5-50.1); MEAN CORPUSCULAR HEMOGLOBIN 28.1 pg (27.0-34.0); MEAN CORPUSCULAR HGB CONC 30.8 g/dL (33.0-35.0); MEAN CORPUSCULAR VOLUME 91.2 fL (80-100); MONOCYTES PERCENT AUTO 1.5 % (2-8); NEUTROPHILS PERCENT AUTO 96.7 % (42.2-75.2); PLATELET COUNT,PLT 146 10^3/uL (150-450); RED BLOOD CELL COUNT 4.31 10^6/uL (4.6-6.2); WHITE BLOOD CELL COUNT,WBC 11.3 10^3/uL (5.0-10.0)
[2023-08-28] MEDS: Sodium Chloride 0.9% 1,000 ML IV ONE ×2 (16:20→17:20)
[2023-08-28 16:34] LABS: B-TYPE NATRIURETIC PEPTIDE,BNP 338 pg/ml (0-100)
[2023-08-28 16:38] LABS: ALANINE AMINOTRANSFERASE,ALT 8 U/L (16-63); ALBUMIN 3.2 g/dL (3.4-5.0); ALKALINE PHOSPHATASE 85 U/L (46-116); ANION GAP 10.5 mEq/L (7-13); ASPARTATE AMNIOTRANSFERASE,AST 15 U/L (15-37); BILIRUBIN TOTAL 1.5 mg/dL (0.2-1.0); BLOOD UREA NITROGEN,BUN 11 mg/dL (7-18); BUN/CREATININE RATIO 9.4 (No establ ref range); C-REACTIVE PROTEIN 1.81 ng/dL (<=0.50); CALCIUM 8.3 mg/dL (8.5-10.1); CARBON DIOXIDE,CO2 27 mmol/L (21-32); CHLORIDE,CL 103 mmol/L (98-107); CREATININE 1.17 mg/dL (0.70-1.30); GLUCOSE RANDOM 142 mg/dL (70-99); MAGNESIUM 1.8 mg/dL (1.8-2.4); POTASSIUM,K 3.5 mmol/L (3.5-5.1); PROTEIN TOTAL,TP 6.4 g/dL (6.4-8.2); SODIUM,NA 137 mmol/L (136-145)
[2023-08-28] MEDS: Piperacillin/Tazobactam 4.5 GM in Sodium Chloride 0.9% 100 ML IV ONE (16:39)
[2023-08-28 16:40] LABS: ESTIMATED GFR 61 mL/min (>=60)
[2023-08-28] MEDS: Ketorolac 30 MG/ML SDV IVPUSH ONE (16:42)
[2023-08-28] MEDS: Sodium Chloride 0.9% 10 ML Syringe FLUSH PRN (16:44)
[2023-08-28] MEDS: Ondansetron 4 MG/2 ML SDV IVPUSH ONE (17:17)
[2023-08-28] MEDS ORDERED: Polyethylene Glycol 3350 Powder 17 GM Packet PO PRN (19:16)
[2023-08-28] MEDS ORDERED: Ondansetron 4 MG/2 ML SDV IVPUSH PRN (19:16)
[2023-08-28] MEDS ORDERED: Acetaminophen/oxyCODONE 325-5 MG Tab PO PRN (19:16)
[2023-08-28] MEDS ORDERED: Magnesium Hydroxide 400 MG/5 ML Susp 30 ML Cup PO PRN (19:16)
[2023-08-28] MEDS ORDERED: Sennosides/Docusate Sodium 50-8.6 MG Tab PO PRN (19:16)
[2023-08-28] MEDS ORDERED: Ketorolac 30 MG/ML SDV IVPUSH PRN (19:16)
[2023-08-28] MEDS ORDERED: Albuterol/Ipratropium 3.0-0.5 MG/3 ML Neb Soln NEB PRN (19:16)
[2023-08-28] MEDS ORDERED: Ziprasidone Mesylate 20 MG Vial IM PRN (19:25)
[2023-08-28] MEDS ORDERED: VANCOmycin 1.75 GM/350 ML 350 ML IV ONE (20:30)
[2023-08-28] MEDS: Sodium Chloride 0.9% 1,000 ML IV SCH (20:57)
[2023-08-28 21:39] LABS: CORONAVIRUS COVID-19 NAA NEGATIVE (NEGATIVE); INFLUENZA A NAA NEGATIVE (NEGATIVE); INFLUENZA B NAA NEGATIVE (NEGATIVE); RESPIRATORY SYNCYTIAL VIR NAA NEGATIVE (NEGATIVE)
[2023-08-28] MEDS: guaiFENesin 600 MG Tab.ER PO SCH (22:46)
[2023-08-28] MEDS: Saccharomyces Boulardii (Probiotic) 250 MG Cap PO SCH (22:46)
[2023-08-28] MEDS: Midodrine 5 MG Tab PO PRN (22:46)
[2023-08-29] MEDS: Piperacillin/Tazobactam 4.5 GM in Sodium Chloride 0.9% 100 ML IV SCH ×2 (00:25→15:15)
[2023-08-29] MEDS: Sodium Chloride 0.9% 1,000 ML IV SCH (02:05)
[2023-08-29 04:19] LABS: BILIRUBIN,URINE NEGATIVE (NEGATIVE); COLOR,URINE YELLOW (YELLOW); GLUCOSE,URINE NEGATIVE (NEGATIVE); KETONES,URINE NEGATIVE (NEGATIVE); LEUKOCYTE ESTERASE,URINE SMALL (NEGATIVE); NITRITE,URINE NEGATIVE (NEGATIVE); OCCULT BLOOD,URINE SMALL (NEGATIVE); PROTEIN,URINE >=300 (NEGATIVE); UROBILINOGEN,URINE 0.2 mg/dL (0.2-1.0)
[2023-08-29 04:28] LABS: APPEARANCE,URINE SLIGHTLY CLOUDY (CLEAR)
[2023-08-29 04:29] LABS: AMORPHOUS SEDIMENT,URINE FEW /HPF (NOT SEEN); BACTERIA,URINE MODERATE /HPF (0-FEW/HPF); EPITHELIAL CELLS,URINE FEW /HPF (NOT SEEN); WBC,URINE 30-40 /HPF (0-5/HPF)
[2023-08-29 06:46] LABS: BASOPHILS PERCENT AUTO 0.1 % (0.0-1.0); EOSINOPHILS PERCENT AUTO 0.7 % (1.0-3.0); HEMATOCRIT 34.1 % (40.0-54.0); HEMOGLOBIN 10.1 g/dL (14.0-18.0); MEAN CORPUSCULAR HEMOGLOBIN 27.6 pg (27.0-34.0); MEAN CORPUSCULAR HGB CONC 29.6 g/dL (33.0-35.0); MEAN CORPUSCULAR VOLUME 93.2 fL (80-100); MONOCYTES PERCENT AUTO 6.2 % (2-8); PLATELET COUNT,PLT 127 10^3/uL (150-450); RED BLOOD CELL COUNT 3.66 10^6/uL (4.6-6.2); WHITE BLOOD CELL COUNT,WBC 13.5 10^3/uL (5.0-10.0)
[2023-08-29 07:03] LABS: ALBUMIN 2.5 g/dL (3.4-5.0); ANION GAP 12.5 mEq/L (7-13); BILIRUBIN TOTAL 2.2 mg/dL (0.2-1.0); BUN/CREATININE RATIO 11.9 (No establ ref range); C-REACTIVE PROTEIN 8.99 ng/dL (<=0.50); CALCIUM 7.6 mg/dL (8.5-10.1); CREATININE 1.43 mg/dL (0.70-1.30); EST CRCL DRUG DOSING (CG) 36.54 mL/min; MAGNESIUM 1.8 mg/dL (1.8-2.4); POTASSIUM,K 4.5 mmol/L (3.5-5.1); PROTEIN TOTAL,TP 5.5 g/dL (6.4-8.2); VANCOMYCIN RANDOM 21.8 ug/mL (No Normal Range)
[2023-08-29 07:23] LABS: A/G RATIO 0.83
[2023-08-29] MEDS ORDERED: HYDROmorphone 0.5 MG/0.5 ML Syringe IVPUSH PRN (09:41)
[2023-08-29] MEDS ORDERED: Naloxone 2 MG/2 ML Syringe IVPUSH PRN (09:42)
[2023-08-29] MEDS ORDERED: Nystatin Topical Powder 60 GM Bottle TOP PRN (10:04)
[2023-08-29] MEDS ORDERED: Calcium Carbonate 500 MG Tab.Chew PO PRN ×2 (10:04→11:56)
[2023-08-29] MEDS ORDERED: MENTHOL PO SCH (10:15)
[2023-08-29] MEDS ORDERED: EUCALYPTUS PO SCH (10:15)
[2023-08-29] MEDS: Midodrine 5 MG Tab PO SCH (16:28)
[2023-08-29] MEDS: Clotrimazole 1% Crm 30 GM Tube TOP SCH (20:29)
[2023-08-29] MEDS: Escitalopram 10 MG Tab PO SCH (20:30)
[2023-08-29] MEDS: Docusate Sodium 100 MG Cap PO SCH (20:30)
[2023-08-29] MEDS: Simvastatin 10 MG Tab PO SCH (20:30)
[2023-08-29] MEDS: Fluticasone NASAL Spray 16 GM Bottle NASBOTH SCH (20:30)
[2023-08-30 06:47] LABS: BASOPHILS PERCENT AUTO 0.4 % (0.0-1.0); EOSINOPHILS PERCENT AUTO 1.9 % (1.0-3.0); HEMATOCRIT 33.3 % (40.0-54.0); HEMOGLOBIN 9.7 g/dL (14.0-18.0); LYMPHOCYTES PERCENT AUTO 6.3 % (20.5-50.1); MEAN CORPUSCULAR HEMOGLOBIN 27.1 pg (27.0-34.0); MEAN CORPUSCULAR HGB CONC 29.1 g/dL (33.0-35.0); MONOCYTES PERCENT AUTO 7.8 % (2-8); NEUTROPHILS PERCENT AUTO 83.6 % (42.2-75.2); PLATELET COUNT,PLT 121 10^3/uL (150-450); RED BLOOD CELL COUNT 3.58 10^6/uL (4.6-6.2); WHITE BLOOD CELL COUNT,WBC 9.6 10^3/uL (5.0-10.0)
[2023-08-30 07:31] LABS: A/G RATIO 0.87; ALBUMIN 2.6 g/dL (3.4-5.0); BILIRUBIN TOTAL 1.4 mg/dL (0.2-1.0); BUN/CREATININE RATIO 12.4 (No establ ref range); C-REACTIVE PROTEIN 9.2 ng/dL (<=0.50); CALCIUM 7.9 mg/dL (8.5-10.1); CREATININE 1.37 mg/dL (0.70-1.30); EST CRCL DRUG DOSING (CG) 38.14 mL/min; MAGNESIUM 1.9 mg/dL (1.8-2.4); PROTEIN TOTAL,TP 5.6 g/dL (6.4-8.2)
[2023-08-30] MEDS ORDERED: Non-Formulary Medication 1 Each (Pantoprazole Sodium [Protonix] 20 MG Tablet.Dr) PO SCH (09:00)
[2023-08-30] MEDS: Pantoprazole 40 MG Tab.CR PO SCH (09:30)
[2023-08-30] MEDS: Ferrous Sulfate 325 MG Tab PO SCH (09:30)
[2023-08-30] MEDS: Clopidogrel 75 MG Tab PO SCH (09:30)
[2023-08-30] MEDS: Albumin Human 25 GM in Premix Bag 1 BAG IV SCH (10:54)
[2023-08-30] MEDS: Furosemide 20 MG/2 ML VIAL IVPUSH ONE (11:56)
[2023-08-31 06:55] LABS: BASOPHILS PERCENT AUTO 0.3 % (0.0-1.0); EOSINOPHILS PERCENT AUTO 2.4 % (1.0-3.0); HEMATOCRIT 30.7 % (40.0-54.0); HEMOGLOBIN 9.5 g/dL (14.0-18.0); LYMPHOCYTES PERCENT AUTO 9.5 % (20.5-50.1); MEAN CORPUSCULAR HEMOGLOBIN 29.1 pg (27.0-34.0); MEAN CORPUSCULAR HGB CONC 30.9 g/dL (33.0-35.0); MEAN CORPUSCULAR VOLUME 93.9 fL (80-100); MONOCYTES PERCENT AUTO 8.2 % (2-8); NEUTROPHILS PERCENT AUTO 79.6 % (42.2-75.2); PLATELET COUNT,PLT 103 10^3/uL (150-450); RED BLOOD CELL COUNT 3.27 10^6/uL (4.6-6.2)
[2023-08-31 07:23] LABS: ANION GAP 12.7 mEq/L (7-13); BILIRUBIN TOTAL 1.6 mg/dL (0.2-1.0); BUN/CREATININE RATIO 10.6 (No establ ref range); C-REACTIVE PROTEIN 6.88 ng/dL (<=0.50); CALCIUM 8.2 mg/dL (8.5-10.1); CREATININE 1.23 mg/dL (0.70-1.30); EST CRCL DRUG DOSING (CG) 42.48 mL/min; MAGNESIUM 1.9 mg/dL (1.8-2.4); POTASSIUM,K 3.7 mmol/L (3.5-5.1); PROTEIN TOTAL,TP 5.7 g/dL (6.4-8.2)
[2023-08-31 07:24] LABS: A/G RATIO 1.11
[2023-09-01 06:25] LABS: BASOPHILS PERCENT AUTO 0.3 % (0.0-1.0); EOSINOPHILS PERCENT AUTO 3.8 % (1.0-3.0); HEMATOCRIT 33.1 % (40.0-54.0); HEMOGLOBIN 10.2 g/dL (14.0-18.0); LYMPHOCYTES PERCENT AUTO 12.2 % (20.5-50.1); MEAN CORPUSCULAR HEMOGLOBIN 28.6 pg (27.0-34.0); MEAN CORPUSCULAR HGB CONC 30.8 g/dL (33.0-35.0); MEAN CORPUSCULAR VOLUME 92.7 fL (80-100); MONOCYTES PERCENT AUTO 9.1 % (2-8); NEUTROPHILS PERCENT AUTO 74.6 % (42.2-75.2); PLATELET COUNT,PLT 121 10^3/uL (150-450); RED BLOOD CELL COUNT 3.57 10^6/uL (4.6-6.2); WHITE BLOOD CELL COUNT,WBC 6.1 10^3/uL (5.0-10.0)
[2023-09-01 06:46] LABS: A/G RATIO 0.9; ALBUMIN 2.8 g/dL (3.4-5.0); ANION GAP 12.4 mEq/L (7-13); BILIRUBIN TOTAL 1.7 mg/dL (0.2-1.0); BUN/CREATININE RATIO 7.9 (No establ ref range); C-REACTIVE PROTEIN 6.94 ng/dL (<=0.50); CALCIUM 8.2 mg/dL (8.5-10.1); CREATININE 1.27 mg/dL (0.70-1.30); EST CRCL DRUG DOSING (CG) 41.14 mL/min; MAGNESIUM 1.8 mg/dL (1.8-2.4); POTASSIUM,K 3.4 mmol/L (3.5-5.1); PROTEIN TOTAL,TP 5.9 g/dL (6.4-8.2)
[2023-09-01] MEDS: Furosemide 20 MG/2 ML VIAL IVPUSH ONE (08:53)
[2023-09-01] MEDS: Benzocaine/Cetylpyridinium/Menthol Lozenge MUCMEM PRN (08:57)
[2023-09-01] MEDS: Nystatin Topical Powder 60 GM Bottle TOP PRN (09:01)
[2023-09-01] MEDS: Potassium Chloride 10 MEQ Tab.ER PO ONE (12:12)
[2023-09-01] MEDS: Acetaminophen 325 MG Tab PO PRN (22:41)
[2023-09-02 06:39] LABS: BASOPHILS PERCENT AUTO 0.4 % (0.0-1.0); EOSINOPHILS PERCENT AUTO 3.7 % (1.0-3.0); HEMATOCRIT 34.3 % (40.0-54.0); HEMOGLOBIN 10.9 g/dL (14.0-18.0); LYMPHOCYTES PERCENT AUTO 13.6 % (20.5-50.1); MEAN CORPUSCULAR HEMOGLOBIN 29.2 pg (27.0-34.0); MEAN CORPUSCULAR HGB CONC 31.8 g/dL (33.0-35.0); MONOCYTES PERCENT AUTO 11.2 % (2-8); NEUTROPHILS PERCENT AUTO 71.1 % (42.2-75.2); PLATELET COUNT,PLT 133 10^3/uL (150-450); RED BLOOD CELL COUNT 3.73 10^6/uL (4.6-6.2); WHITE BLOOD CELL COUNT,WBC 7.6 10^3/uL (5.0-10.0)
[2023-09-02 07:09] LABS: ALBUMIN 2.8 g/dL (3.4-5.0); ANION GAP 13.6 mEq/L (7-13); BILIRUBIN TOTAL 1.7 mg/dL (0.2-1.0); BUN/CREATININE RATIO 7.2 (No establ ref range); C-REACTIVE PROTEIN 5.24 ng/dL (<=0.50); CALCIUM 8.4 mg/dL (8.5-10.1); CREATININE 1.25 mg/dL (0.70-1.30); EST CRCL DRUG DOSING (CG) 41.8 mL/min; MAGNESIUM 1.7 mg/dL (1.8-2.4); POTASSIUM,K 3.6 mmol/L (3.5-5.1); PROTEIN TOTAL,TP 6.1 g/dL (6.4-8.2)
[2023-09-02 07:13] LABS: A/G RATIO 0.85
[2023-09-02] MEDS: Magnesium Sulfate/D5W 1 GM/100 ML BAG IV ONE (08:01)
== END 2023-09-02 10:50 | disposition home or self-care (01) | DRG 871 ==
LOC: DL.ED 16:11 → DL.MS 17:17
PROVIDERS: ADMIT Internal Medicine; ATTEND Internal Medicine
DX: A41.9 Sepsis, unspecified organism (principal); A41.89 Other specified sepsis; R09.02 Hypoxemia; G93.41 Metabolic encephalopathy; J18.9 Pneumonia, unspecified organism; J69.0 Pneumonitis due to inhalation of food and vomit; J96.01 Acute respiratory failure with hypoxia; F03.911 Unspecified dementia, unspecified severity, with agitation; N39.0 Urinary tract infection, site not specified; Z66 Do not resuscitate; H91.90 Unspecified hearing loss, unspecified ear; E78.00 Pure hypercholesterolemia, unspecified; K21.9 Gastro-esophageal reflux disease without esophagitis; I10 Essential (primary) hypertension; I95.9 Hypotension, unspecified; D69.6 Thrombocytopenia, unspecified; R73.9 Hyperglycemia, unspecified; R00.1 Bradycardia, unspecified; E80.6 Other disorders of bilirubin metabolism; E88.09 Other disorders of plasma-protein metabolism, not elsewhere classified; E86.0 Dehydration; R26.9 Unspecified abnormalities of gait and mobility; M19.90 Unspecified osteoarthritis, unspecified site; E87.6 Hypokalemia; N50.89 Other specified disorders of the male genital organs; I69.398 Other sequelae of cerebral infarction; I69.319 Unspecified symptoms and signs involving cognitive functions following cerebral infarction; Z79.02 Long term (current) use of antithrombotics/antiplatelets; Z79.899 Other long term (current) drug therapy; Z79.2 Long term (current) use of antibiotics; Z87.81 Personal history of (healed) traumatic fracture; Z86.79 Personal history of other diseases of the circulatory system
CPT/HCPCS: 0241U; 36415; 71045; 80053; 80202; 81001; 83605; 83735; 83880; 84145; 85025; 86140; 87040; 87077; 87086; 87186; 93005; 93010; 94010; 94060; 94667; 94668; 94760; 96365; 96368; 96375; 99223; 99232; 99233; 99238; 99285; A9270-GY; J1885; J1940; J2405; J2543; J3370; J3475; J3490; J7030; J7050; P9047

== ENCOUNTER 2023-09-04 18:03 | Inpatient (IN) | payer MEDICARE, BC, MEDICAID ==
[2023-09-04] MEDS: Albuterol/Ipratropium 3.0-0.5 MG/3 ML Neb Soln NEB ONE ×2 (18:06)
[2023-09-04 18:16] LABS: BASOPHILS PERCENT AUTO 0.4 % (0.0-1.0); EOSINOPHILS PERCENT AUTO 3.9 % (1.0-3.0); HEMATOCRIT 35.8 % (40.0-54.0); HEMOGLOBIN 11.3 g/dL (14.0-18.0); LYMPHOCYTES PERCENT AUTO 13.7 % (20.5-50.1); MEAN CORPUSCULAR HGB CONC 31.6 g/dL (33.0-35.0); MEAN CORPUSCULAR VOLUME 91.8 fL (80-100); MONOCYTES PERCENT AUTO 9.4 % (2-8); NEUTROPHILS PERCENT AUTO 72.6 % (42.2-75.2); PLATELET COUNT,PLT 179 10^3/uL (150-450); WHITE BLOOD CELL COUNT,WBC 8.3 10^3/uL (5.0-10.0)
[2023-09-04 18:18] LABS: INR 1.1 (0.9-1.2); PROTHROMBIN TIME 11.1 SEC (9.0-12.0)
[2023-09-04 18:27] LABS: ALBUMIN 2.9 g/dL (3.4-5.0); ANION GAP 11.3 mEq/L (7-13); BILIRUBIN TOTAL 0.8 mg/dL (0.2-1.0); BUN/CREATININE RATIO 5.5 (No establ ref range); CALCIUM 8.4 mg/dL (8.5-10.1); CREATININE 1.27 mg/dL (0.70-1.30); EST CRCL DRUG DOSING (CG) 41.14 mL/min; POTASSIUM,K 3.3 mmol/L (3.5-5.1); PROTEIN TOTAL,TP 6.1 g/dL (6.4-8.2)
[2023-09-04 18:31] LABS: A/G RATIO 0.91
[2023-09-04] MEDS: Sodium Chloride 0.9% 10 ML Syringe FLUSH PRN (18:36)
[2023-09-04 18:43] LABS: CORONAVIRUS COVID-19 NAA NEGATIVE (NEGATIVE); INFLUENZA A NAA NEGATIVE (NEGATIVE); INFLUENZA B NAA NEGATIVE (NEGATIVE); RESPIRATORY SYNCYTIAL VIR NAA NEGATIVE (NEGATIVE)
[2023-09-04] MEDS: Furosemide 40 MG/4 ML VIAL IVPUSH ONE (20:40)
[2023-09-04] MEDS: OLANZapine 10 MG Vial IM ONE (21:43)
[2023-09-04] MEDS: Potassium Chloride 10 MEQ Tab.ER PO ONE (22:21)
[2023-09-04] MEDS ORDERED: Docusate Sodium 100 MG Cap PO PRN (22:53)
[2023-09-04] MEDS ORDERED: Ondansetron 4 MG/2 ML SDV IVPUSH PRN (22:53)
[2023-09-04] MEDS ORDERED: Bisacodyl 5 MG Tab PO PRN (22:53)
[2023-09-04] MEDS ORDERED: Acetaminophen 325 MG Tab PO PRN (22:53)
[2023-09-05 06:20] LABS: HEMATOCRIT 35.6 % (40.0-54.0); MEAN CORPUSCULAR HEMOGLOBIN 28.5 pg (27.0-34.0); MEAN CORPUSCULAR HGB CONC 30.9 g/dL (33.0-35.0); MEAN CORPUSCULAR VOLUME 92.2 fL (80-100); RED BLOOD CELL COUNT 3.86 10^6/uL (4.6-6.2); WHITE BLOOD CELL COUNT,WBC 6.8 10^3/uL (5.0-10.0)
[2023-09-05 06:44] LABS: ANION GAP 10.4 mEq/L (7-13); CALCIUM 8.7 mg/dL (8.5-10.1); CREATININE 1.23 mg/dL (0.70-1.30); EST CRCL DRUG DOSING (CG) 42.48 mL/min; POTASSIUM,K 3.4 mmol/L (3.5-5.1)
[2023-09-05] MEDS: Furosemide 40 MG/4 ML VIAL IVPUSH SCH (07:32)
[2023-09-05] MEDS ORDERED: Fluticasone NASAL Spray 16 GM Bottle NAS PRN (07:50)
[2023-09-05] MEDS ORDERED: Bisacodyl 10 MG Supp RECTAL PRN (07:50)
[2023-09-05] MEDS ORDERED: Calcium Carbonate 500 MG Tab.Chew PO PRN (07:50)
[2023-09-05] MEDS ORDERED: Nystatin Topical Powder 60 GM Bottle TOP PRN (07:50)
[2023-09-05] MEDS ORDERED: Magnesium Hydroxide 400 MG/5 ML Susp 30 ML Cup PO PRN (07:50)
[2023-09-05] MEDS ORDERED: MENTHOL PO SCH (08:00)
[2023-09-05] MEDS ORDERED: EUCALYPTUS PO SCH (08:00)
[2023-09-05] MEDS: Potassium Chloride 10 MEQ Tab.ER PO SCH (08:56)
[2023-09-05] MEDS: Metoprolol Succinate 50 MG Tab.ER PO SCH (08:57)
[2023-09-05] MEDS: Simvastatin 10 MG Tab PO SCH (08:57)
[2023-09-05] MEDS: Escitalopram 10 MG Tab PO SCH (08:57)
[2023-09-05] MEDS: Clopidogrel 75 MG Tab PO SCH (08:57)
[2023-09-05] MEDS: Ferrous Sulfate 325 MG Tab PO SCH (08:58)
[2023-09-05] MEDS: Clotrimazole 1% Crm 30 GM Tube TOP SCH (08:58)
[2023-09-05] MEDS: Midodrine 5 MG Tab PO SCH (09:14)
[2023-09-05] MEDS: Pantoprazole 40 MG Tab.CR PO SCH (09:14)
[2023-09-05] MEDS: Fluticasone NASAL Spray 16 GM Bottle NASBOTH SCH (15:13)
[2023-09-06 06:28] LABS: HEMATOCRIT 36.8 % (40.0-54.0); HEMOGLOBIN 11.4 g/dL (14.0-18.0); MEAN CORPUSCULAR VOLUME 93.6 fL (80-100); RED BLOOD CELL COUNT 3.93 10^6/uL (4.6-6.2)
[2023-09-06 06:39] LABS: ANION GAP 8.8 mEq/L (7-13); CALCIUM 8.8 mg/dL (8.5-10.1); CREATININE 1.27 mg/dL (0.70-1.30); EST CRCL DRUG DOSING (CG) 41.14 mL/min; POTASSIUM,K 3.8 mmol/L (3.5-5.1)
[2023-09-06] MEDS: Apixaban 5 MG Tab PO SCH (15:39)
[2023-09-06] MEDS: Metolazone 2.5 MG Tab PO SCH ×2 (15:40→22:36)
[2023-09-07 06:39] LABS: HEMATOCRIT 39.4 % (40.0-54.0); HEMOGLOBIN 12.1 g/dL (14.0-18.0); MEAN CORPUSCULAR HEMOGLOBIN 28.8 pg (27.0-34.0); MEAN CORPUSCULAR HGB CONC 30.7 g/dL (33.0-35.0); MEAN CORPUSCULAR VOLUME 93.8 fL (80-100); RED BLOOD CELL COUNT 4.2 10^6/uL (4.6-6.2); WHITE BLOOD CELL COUNT,WBC 8.2 10^3/uL (5.0-10.0)
[2023-09-07 06:49] LABS: CALCIUM 9.2 mg/dL (8.5-10.1); CREATININE 1.37 mg/dL (0.70-1.30); EST CRCL DRUG DOSING (CG) 38.14 mL/min
[2023-09-08 06:30] LABS: HEMATOCRIT 38.7 % (40.0-54.0); HEMOGLOBIN 12.1 g/dL (14.0-18.0); MEAN CORPUSCULAR HEMOGLOBIN 28.9 pg (27.0-34.0); MEAN CORPUSCULAR HGB CONC 31.3 g/dL (33.0-35.0); MEAN CORPUSCULAR VOLUME 92.6 fL (80-100); RED BLOOD CELL COUNT 4.18 10^6/uL (4.6-6.2); WHITE BLOOD CELL COUNT,WBC 11.7 10^3/uL (5.0-10.0)
[2023-09-08 06:45] LABS: CALCIUM 9.2 mg/dL (8.5-10.1); CREATININE 1.45 mg/dL (0.70-1.30); EST CRCL DRUG DOSING (CG) 36.03 mL/min
[2023-09-09 06:41] LABS: HEMATOCRIT 39.9 % (40.0-54.0); HEMOGLOBIN 12.5 g/dL (14.0-18.0); MEAN CORPUSCULAR HEMOGLOBIN 28.6 pg (27.0-34.0); MEAN CORPUSCULAR HGB CONC 31.3 g/dL (33.0-35.0); MEAN CORPUSCULAR VOLUME 91.3 fL (80-100); RED BLOOD CELL COUNT 4.37 10^6/uL (4.6-6.2); WHITE BLOOD CELL COUNT,WBC 10.7 10^3/uL (5.0-10.0)
[2023-09-09 07:02] LABS: ANION GAP 11.5 mEq/L (7-13); CREATININE 1.44 mg/dL (0.70-1.30); EST CRCL DRUG DOSING (CG) 36.28 mL/min; POTASSIUM,K 3.5 mmol/L (3.5-5.1)
== END 2023-09-09 10:45 | DRG 291 ==
LOC: DL.ED 18:03 → DL.MS 22:52 → UNDOADMIN 22:52 → DL.MS 22:53
PROVIDERS: ADMIT Internal Medicine; ATTEND Internal Medicine
DX: I11.0 Hypertensive heart disease with heart failure (principal); G93.41 Metabolic encephalopathy; J96.01 Acute respiratory failure with hypoxia; F05 Delirium due to known physiological condition; I50.9 Heart failure, unspecified; E87.6 Hypokalemia; Z66 Do not resuscitate; I48.91 Unspecified atrial fibrillation; F03.90 Unspecified dementia, unspecified severity, without behavioral disturbance, psychotic disturbance, mood disturbance, and anxiety; E78.00 Pure hypercholesterolemia, unspecified; H91.90 Unspecified hearing loss, unspecified ear; D50.9 Iron deficiency anemia, unspecified; K21.9 Gastro-esophageal reflux disease without esophagitis; N32.81 Overactive bladder; M19.90 Unspecified osteoarthritis, unspecified site; Z74.01 Bed confinement status; Z79.02 Long term (current) use of antithrombotics/antiplatelets; Z79.899 Other long term (current) drug therapy; Z87.440 Personal history of urinary (tract) infections; Z98.890 Other specified postprocedural states; Z86.73 Personal history of transient ischemic attack (TIA), and cerebral infarction without residual deficits
CPT/HCPCS: 0241U; 36415; 71045; 80048; 80053; 82947; 83605; 83880; 84484; 85025; 85027; 85610; 93005; 93010; 94640; 96372; 96374; 99223; 99232; 99233; 99239; 99285; A9270-GY; J1940; J2405; J3490; J7620-GY